=== PATIENT | male | born 1955 | race Hispanic/Latino ===

== ENCOUNTER 2020-03-05 11:06 | Inpatient (IN) | payer BC, OTHER ==
[2020-03-05 11:42] LABS: Absolute Lymphocytes (CBC) 3.6 K/uL (0.7-4.9); Basophils % 0.5 % (0-1.3); Hematocrit 41.1 % (39.6-49.0); Lymphocytes % 31.9 % (15.3-44.8); MPV 8.7 fL (7.6-11.3); RBC Red Blood Cell Count 4.69 M/uL (4.33-5.43)
--- OUTSIDE RECORDS SUMMARY | 2020-03-05 12:01 | XMS REPORT | Clinical Summary ---
:1955 Author Organization [facility] Address [address] [place] [address] Care Team Providers Name Role Phone Antonio Medellin MD Primary Care Provider Allergies No Known Active Allergies Medications Medication Sig Dispensed Refills Start End Date Status Date rosuvastatin Take 5 mg by 0 Acti ve (CRESTOR) 5 MG mouth every 0 tablet morning. BYSTOLIC 5 mg Take 5 mg by 0 Act gilson tablet mouth every 0 morning. POTASSIUM CITRATE Take by mouth 3 0 Active ORAL (three) times a day. nebivoloL 0 Active (BYSTOLIC) 5 MG tablet potassium citrate Take 1 tablet 270 tablet 3 0 Active (UROCIT-K) 10 mEq (10 mEq total) 0 21 (1,080 mg) CR by mouth 3 tablet (three) times a day with meals for 90 days. tamsulosin TK 1 C PO D 30 0 06/07/19 Disc ontinued (FLOMAX) 0.4 mg MIN PC 0 20 (The rapy capsule completed) alfuzosin Take 1 tablet 30 tablet 11 01/05/20 Discon tinued (UROXATRAL) 10 mg (10 mg total) by 0 20 (Therapy 24 hr tablet mouth daily. comp leted) potassium citrate Take 1 tablet 90 tablet 3 10/19/19 (UROCIT-K) 10 mEq (10 mEq total) 0 20 (1,080 mg) CR by mouth 3 tablet (three) times a day with meals for 30 days. ciprofloxacin HCl Take 1 tablet 14 tablet 0 11/12/19 (CIPRO) 250 MG (250 mg total) 0 20 tablet by mouth 2 (two) times a day for 7 days. docusate sodium Take 1 capsule 30 capsule 0 12/05/19 (COLACE) 100 MG (100 mg total) 0 20 capsule by mouth 2 (two) times a day as needed for constipation for up to 30 days. HYDROcodone-aceta Take 1 tablet by 20 tablet 0 11/09 minophen (NORCO) mouth every 4 0 20 5-325 mg per (four) hours as tabletIndications needed for : acute pain moderate pain for up to 5 days .acute pain. Max Daily Amount: 6 tablets levoFLOXacin Take 1 tablet 7 tablet 0 12/30/19 Exp ired (Levaquin) 250 MG (250 mg total) 0 20 tablet by mouth daily for 7 days. tamsulosin TK 1 C PO D 30 0 01/05/20 Disc ontinued (FLOMAX) 0.4 mg MIN PC 0 20 (The rapy capsule completed) nitrofurantoin, Take 1 capsule 30 capsule 0 01/05/20 Discontinued macrocrystal-mono (100 mg total) 0 20 (Reorder) hydrate, by mouth nightly (MACROBID) 100 MG for 30 days. capsule nitrofurantoin, Take 1 capsule 30 capsule 0 02/04/20 macrocrystal-mono (100 mg total) 0 20 hydrate, by mouth nightly (MACROBID) 100 MG for 30 days. capsule potassium citrate TK 1 T PO TID 0 02/13/20 Discontinued (UROCIT-K) 10 mEq WITH MEALS 0 20 ( Reorder) (1,080 mg) CR tablet Active Problems Problem Noted Date S/P TURP 11/16/2019 Personal history of kidney stones 09/06/2019 BPH without obstruction/lower urinary tract symptoms 0 06/07/2019 Resolved Problems Problem Noted Date Resolved Date Urge incontinence of urine 01/05/2020 02/07/2020 Overactive bladder 01/05/2020 02/07/2020 At risk for retention of urine 09/06/2019 0 Slow urinary stream 06/07/2019 02/07/2020 Encounters Date Type Specialty Care Team Description 02/13/2020 Telephone Urology Jace Bryant MD 02/07/2020 Office Visit Urology Manny, BPH without obs truction/lower urinary tract symptoms (Primary Dx); MD Jace S/P TURP; Personal histor y of kidney stones 02/07/2020 Travel 01/05/2020 Office Visit Urology Manny, BPH without obs truction/lower urinary tract symptoms (Primary Dx); MD Jace Urge incontinen ce of urine; Overactive blad chong 01/05/2020 Travel 12/23/2019 Telephone Urology Jace Bryant MD 11/16/2019 Office Visit Urology Manny, BPH without obs truction/lower urinary tract symptoms (Primary Dx); MD Jace S/P TURP; Personal histor y of kidney stones 11/16/2019 Travel 11/09/2019 Orders Only Urology Steff Wilson, At risk for retention of urine (Primary Dx); MA Urinary tract i nfection with hematuria, site unspecified 11/07/2019 Telephone Urology Sam Martinez MD 11/04/2019 Surgery General Surgery Manny, CYSTO, TURP MD Jace 11/04/2019 Anesthesia Event General Surgery Dmitry Su MD Alper, Samantha J 11/04/2019 - Hospital Encounter General Surgery Manny, BPH wi 11/05/2019 MD Jace obstruction/low er urinary tract symptoms (Prima ry Dx) 11/04/2019 Travel 10/31/2019 Pre-Admit Testing Pre-Admission Manny Preoperat gilson testing (Primary Dx); Appointment Testing MD Jace BPH with obstru ction/lower urinary tract symptoms 10/31/2019 Travel 10/26/2019 Travel 10/21/2019 Telephone Urology Steff Wilson MA 09/29/2019 Telemedicine Urology Manny BPH with obstru ction/lower urinary tract symptoms (Primary Dx); MD Jace Slow urinary st ream; At risk for ret ention of urine; Personal histor y of kidney stones 09/23/2019 Orders Only Urology Steff Wilson MA 09/23/2019 Telephone Urology Jace Bryant MD 09/19/2019 Orders Only Urology Jace Bryant MD 09/16/2019 Hospital Encounter Radiology Manny, Right arpan ticular MD Jace pain 09/16/2019 Travel 09/15/2019 Travel 09/15/2019 Telephone Urology Mehnaz Narayanan MA 09/15/2019 Telephone Urology Jace Bryant MD 09/15/2019 Telephone Urology Jace Bryant MD 09/15/2019 Orders Only Urology Manny, Right testicula r MD Jace pain (Primary D x) 09/06/2019 Office Visit Urology Manny BPH with obstru ction/lower urinary tract symptoms (Primary Dx); MD Jace Slow urinary st ream; Personal histor y of kidney stones; At risk for ret ention of urine 09/06/2019 Orders Only Urology Jace Bryant MD 09/06/2019 Travel 08/04/2019 Travel 06/07/2019 Hospital Encounter Radiology Manny, BPH with MD Jace obstruction/low er urinary tract symptoms 06/07/2019 Office Visit Urology Manny BPH with obstru ction/lower urinary tract symptoms (Primary Dx); MD Jace Slow urinary st ream 06/07/2019 Travel after 03/05/2019 Surgical History Surgery Date Site/Laterality Comments KNEE SURGERY Right KNEE ARTHROSCOPY Right CYSTO, SALINE TURP (BIPOLAR) 11/04/2019 Urethra/N/A Pro cedure: CYSTO, TURP; Surgeon: Jace Judd MD; Location: [facility] OR; Service: Urology ; Laterality: N/A; Medical History Medical History Date Comments Abdominal aneurysm (HCC) " diagnosed 10 yrs ago, no symptoms" Hypertension Hypercholesteremia Family History Medical History Relation Name Comments Diabetes Mother Relation Name Status Comments Father Mother Social History Tobacco Use Types Packs/Day Years Used Date Never Smoker Smokeless Tobacco: Never Used Alcohol Use Drinks/Week oz/Week Comments Yes social Sex Assigned at Date Recorded Male 11/16/2019 7:14 AM CDT COVID-19 Exposure Response Date Recorded In the last month, have you been in contact with No / Unsure 02/07/2020 1:38 PM CALL CENTER TRAINER someone who was confirmed or suspected to have Coronavirus / COVID-19? Last Filed Vital Signs Vital Sign Reading Time Taken Comments Blood Pressure 123/61 11/05/2019 10:47 AM CDT Pulse 49 11/05/2019 10:47 AM CDT Temperature 37.1 C (98.7 F) 11/05/2019 10:47 AM CDT Respiratory Rate 17 11/05/2019 10:47 AM CDT Oxygen Saturation 97% 11/05/2019 10:47 AM CDT Inhaled Oxygen Concentration - - Weight 94.8 kg (209 lb 1.6 oz) 11/04/2019 6:45 AM CDT Height 170.2 cm (5' 7") 11/04/2019 6:45 AM CDT Body Mass Index 32.75 11/04/2019 6:45 AM CDT Plan of Treatment Date Type Specialty Care Team Description 02/06/2021 Office Visit Urology Nanci Bryant MD [address] [facility] [address] [place], [place] [address] [phone] Health Maintenance Due Date Last Done Comments COLONOSCOPY SCREENING 2003 SHINGLES VACCINES (#1) 2003 65+ PNEUMOCOCCAL VACCINE (1 of 1 - PPSV23) 2018 INFLUENZA VACCINE 10/29/2019 Procedures Procedure Name Priority Date/Time Associated Diagnosis Comme nts POC URINALYSIS Routine 01/05/2020 3:59 BPH without Results f or this DIPSTICK PM CDT obstruction/lower procedure are in urinary tract the results symptoms section. Urge incontinence of urine Overactive bladder URINALYSIS, COMPLETE, Routine 01/05/2020 1:34 BPH without Re sults for this WITH REFLEX TO PM CDT obstruction/lower procedur e are in CULTURE urinary tract the results symptoms section. URINE CULTURE Routine 01/05/2020 1:34 Results fo r this PM CDT procedure are i n the results section. URINALYSIS, COMPLETE, Routine 11/09/2019 10:08 At risk for Re sults for this WITH REFLEX TO AM CDT retention of uri ne procedure are in CULTURE Urinary tract the results infection with section. hematuria, site unspecified URINE CULTURE Routine 11/09/2019 10:08 Results fo r this AM CDT procedure are i n the results section. SURGICAL PATHOLOGY Routine 11/04/2019 8:29 Resul ts for this REQUEST AM CDT procedure are i n the results section. MN AN ELECTIVE Routine 11/04/2019 8:20 Results f or this SUPRAGLOTTIC AIRWAY AM CDT procedur e are in the results section. CYSTO, SALINE TURP 11/04/2019 8:07 BPH with (BIPOLAR) AM CDT obstruction/lower urinary tract symptoms MANUAL DIFFERENTIAL Routine 10/31/2019 2:51 Resu lts for this PM CDT procedure are i n the results section. ESTIMATED GFR Routine 10/31/2019 2:51 Results fo r this PM CDT procedure are i n the results section. CBC WITH PLATELET AND Routine 10/31/2019 2:51 BPH with Re sults for this DIFFERENTIAL PM CDT obstruction/lower procedure are in urinary tract the results symptoms section. BASIC METABOLIC PANEL Routine 10/31/2019 2:51 BPH with Re sults for this PM CDT obstruction/lower procedure are in urinary tract the results symptoms section. URINALYSIS, AUTOMATED Routine 10/31/2019 2:51 BPH with Re sults for this WITH MICROSCOPY PM CDT obstruction/lower procedu re are in urinary tract the results symptoms section. TYPE AND SCREEN Routine 10/31/2019 2:51 Preoperative testing Results for this PM CDT procedure are i n the results section. HEMOGLOBIN A1C Routine 10/31/2019 2:51 Preoperative testing R esults for this PM CDT procedure are i n the results section. ECG PRE/POST OP Routine 10/31/2019 2:48 BPH with Results for this PM CDT obstruction/lower procedure are in urinary tract the results symptoms section. COVID-19 QUALITATIVE Routine 10/31/2019 2:46 BPH with Res ults for this PCR PM CDT obstruction/lower procedure are in urinary tract the results symptoms section. US SCROTAL Routine 09/16/2019 8:25 Right testicular Results for this AM CDT pain procedure are i n the results section. PROSTATE SPECIFIC Routine 06/07/2019 3:02 BPH with Result s for this ANTIGEN PM CDT obstruction/lower procedure are in urinary tract the results symptoms section. US RENAL Routine 06/07/2019 12:19 BPH with Results for this PM CDT obstruction/lower procedure are in urinary tract the results symptoms section. URINALYSIS, COMPLETE, Routine 06/07/2019 10:21 BPH with Re sults for this WITH REFLEX TO AM CDT obstruction/lower procedur e are in CULTURE urinary tract the results symptoms section. URINE CULTURE Routine 06/07/2019 10:21 Results fo r this AM CDT procedure are i n the results section. after 03/05/2019 Results POC urinalysis dipstick (01/05/2020 3:59 PM CDT) Pathologist Sig nature Color urine, POC Yellow Clarity urine, POC Clear Glucose urine, POC Negative Negative Bilirubin urine, POC Negative Negative Ketones urine, POC Trace (A) Negative Specific gravity urine, 1.010 1.005 - 1.030 POC Blood urine, POC Trace (A) Negative pH urine, POC 5.0 5.0, 5.5, 6.0, 6.5, 7.0, 7.5, 8.0, 8.5 Protein urine, POC Negative Negative Urobilinogen urine, POC <2.0 <2.0 Nitrite urine, POC Negative Negative Leukocyte esterase Negative Negative urine, POC Specimen Urine URINALYSIS, COMPLETE, WITH REFLEX TO CULTURE (01/05/2020 1:34 PM CDT)Only the most recent of3 resultswithin the time period is included. Color, UA YELLOW YELLOW [facility] [place] Appearance CLEAR CLEAR [facility] [place] Specific gravity, 1.024 1.001 - 1.035 [facility] urine [place] pH, urine 7.0 5.0 - 8.0 [facility] [place] Glucose, urine 1+ (A) NEGATIVE [facility] [place] Bilirubin, UA NEGATIVE NEGATIVE [facility] [place] Ketones, UA TRACE (A) NEGATIVE [facility] [place] Occult blood, urine TRACE (A) NEGATIVE [facility] [place] Protein, UA NEGATIVE NEGATIVE [facility] [place] Nitrite, UA NEGATIVE NEGATIVE [facility] [place] Leukocyte esterase, TRACE (A) NEGATIVE [facility] UA [place] WBC, UA 6-10 (A) < OR = 5 /HPF [facility] [place] RBC, UA 3-10 (A) < OR = 2 /HPF [facility] [place] Squamous epithelial 0-5 < OR = 5 /HPF [facility] cells, UA [place] Bacteria, UA FEW (A) NONE SEEN /HPF [facility] [place] Hyaline casts, UA NONE SEEN NONE SEEN /LPF [facility] [place] Specimen Resulting Agency Comment Performing Organization Information: Site ID: [id number] Name: [facility] Address: [address] [place] [phone] Director: Wesley Leal Performing Organization Address City/State/ZIP Code Phon e Number [employer] [place] [address] [place] [phone] Urine culture (01/05/2020 1:34 PM CDT)Only the most recent of3 resultswithin the time period is included. Pathologist Sig nature Urine culture [facility] Comment: HAN CULTURE, URINE, ROUTINE Micro Number: [id number] Test Status: Final Specimen Source: URINE Specimen Quality: Adequate Result: No Growth Specimen Resulting Agency Comment Performing Organization Information: Site ID: [id number] Name: [facility] Address: [address] [place] [phone] Director: Wesley Leal Performing Organization Address City/State/ZIP [facility] Phon e Number [facility] [address] Surgical pathology request (11/04/2019 8:29 AM CDT) [facility] DEPARTMENT OF PATHOLOGY AND GENOMIC MEDICINE Surgical pathology See link below [facility] DEPARTMENT OF report for PDF Lab PATHOLOGY AND Report GENOMIC MEDICINE Result status This is Final [facility] DEPARTMENT OF Report for PATHOLOGY AND [id number] GENOMIC MEDICINE Specimen Performing Organization Address City/State/[facility] Phon e Number [facility] DEPARTMENT OF PATHOLOGY AND [address] [place] [address] GENOMIC MEDICINE Airway (11/04/2019 8:20 AM CDT) Narrative Performed At [facility] 11/04/2019 8:20 AM Airway Date/Time: 11/04/2019 8:20 AM Performed by: [facility] [place] Authorized by: Dmitry Su MD Location: OR Urgency: Elective Difficult Airway: No Anesthesiologist: Dmitry Su MD Resident/WEIGHT CONTROL LECTURER/AA: [facility] [place] Performed by: resident/WEIGHT CONTROL LECTURER/AA Preoxygenated with 100% O2: Yes C-spine Precautions Maintained Throughou t: Yes Mask Ventilation: Not attempted Final Airway Type: Supraglottic airway Final LMA: Unique LMA Size: 5 Number of Attempts at Approach: 1 Estimated GFR (10/31/2019 2:51 PM CDT) Estimated GFR >=90 mL/min/1.73 [facility] Comment: m2 [facility] Catergory Units Interpretation HOS PITAL G1 >=90 Normal or high G2 60-89 Mildly decreased G3a 45-59 Mildly to moderately decreas ed G3b 30-44 Moderately to severely decre ased G4 15-29 Severely decreased G5 <15 Kidney failure The eGFR was calculated using the Chronic Kidney Disea se Epidemiology Collaboration (CKD-EPI) equation. Interpretation is based on recommendations of the National Kidney Foundation-Kidney Disease Outcomes Jhonatan lity Initiative (NKF-KDOQI) published in 2014. Specimen Performing Organization Address [facility] Phon e Number [facility] DEPARTMENT OF PATHOLOGY AND [address] [place] [address] MEDICINE [facility] [id number] [place] [address] Manual differential (10/31/2019 2:51 PM CDT) Manual differential PERFORMED [facility] Neutrophils 23.0 (L) 39.0 - 69.0 % [facility] Lymphocytes 74.0 (H) 25.0 - 45.0 % [facility] Monocytes 3.0 0.0 - 10.0 % [facility] Eosinophils 0.0 0.0 - 5.0 % [facility] Basophils 0.0 0.0 - 1.0 % [facility] Metamyelocytes 0 % [facility] Promyelocytes 0 % [facility] Platelet slide review Jay adequate [facility] Specimen Performing Organization Address [facility] Phon e Number [facility] DEPARTMENT OF PATHOLOGY AND [address] [place] [address] [place], [place] [phone] [place] [id number] [place] [address] Urinalysis, automated with microscopy (10/31/2019 2:51 PM CDT) Pathologist Sig nature Color, UA Yellow [facility] Appearance, UA Cloudy [facility] Specific gravity, UA 1.018 1.001 - 1.035 [facility] pH, UA 8.0 5.0 - 8.5 [facility] Protein, UA Negative Negative [facility] Glucose, UA Negative Negative [facility] Ketones, UA Negative Negative [facility] Bilirubin, UA Negative Negative [facility] Blood, UA Negative Negative [facility] Nitrite, UA Negative Negative [facility] Urobilinogen, UA 2.0 (A) <2.0 [facility] Leukocyte esterase, Negative Negative [facility] Epithelial cells, UA Few Few /HPF [facility] WBC, UA 0-5 0 - 1 /HPF [facility] RBC, UA 0-5 0 - 5 /HPF [facility] Bacteria, UA None seen None seen [facility] Amorphous crystals Few [facility] Yeast, UA None seen [facility] Yeast with None seen [facility] pseudohyphae, UA [facility] Specimen Urine Performing Organization Address City/State/ZIP Code Phon e Number [facility] DEPARTMENT OF PATHOLOGY AND [address] [place] [address] GENOMIC MEDICINE [facility] [address] [place], [place] [address] [facility] CBC with platelet and differential (10/31/2019 2:51 PM CDT) Pathologist Sig nature WBC 15.23 (H) 4.50 - 11.00 k/uL [facility] RBC 4.67 4.40 - 6.00 m/uL [facility] HGB 13.9 (L) 14.0 - 18.0 g/dL [facility] HCT 42.6 41.0 - 51.0 % [facility] MCV 91.2 82.0 - 100.0 fL [facility] MCH 29.8 27.0 - 34.0 pg [facility] MCHC 32.6 31.0 - 37.0 g/dL [facility] RDW - SD 47.1 37.0 - 55.0 fL [facility] MPV 10.3 8.8 - 13.2 fL [facility] Platelet count 221 150 - 400 k/uL [facility] Nucleated RBC 0.00 /100 WBC [facility] Neutrophils 23.0 (L) 39.0 - 69.0 % [facility] Lymphocytes 74.0 (H) 25.0 - 45.0 % [facility] Monocytes 3.0 0.0 - 10.0 % [facility] Eosinophils 0.0 0.0 - 5.0 % [facility] Basophils 0.0 0.0 - 1.0 % [facility] Specimen Blood Performing Organization Address City/[facility] Phon e Number [facility] DEPARTMENT OF PATHOLOGY AND [address] [place] [address] [place] [address] [facility] [id number] [place] [address] [place] [address] HOSPITAL Type and screen (10/31/2019 2:51 PM CDT) Pathologist Sig nature ABO grouping O [facility] Rh type POS [facility] Antibody screen (gel) NEG [facility] Specimen Blood Performing Organization Address City/[facility] Phon e Number [facility] DEPARTMENT OF PATHOLOGY AND [address] [place] [address] [place] [address] Hemoglobin A1c (10/31/2019 2:51 PM CDT) Hemoglobin A1C 5.2 4.0 - 5.6 % [facility] Comment: [facility] HbA1c cutoffs for diagnosing diabetes: [facility]ITAL 4.0% - 5.6% = normal 5.7% - 6.4% = increased risk for diabetes (prediabetes )9 >=6.5% = diabetes9 Goals for glycemic control (ADA 2016) < 7.0% Target for non adults with diabetes. More or less stringent targets may be appropriate for individual patients. <7.5% Target for Children and adolescents with type 1 diabetes. Specimen Blood Performing Organization Address City/[facility] Phon e Number [facility] DEPARTMENT OF PATHOLOGY AND [address] [place] [address] [place] [address] [facility] [id number] [place] [address] Basic metabolic panel (10/31/2019 2:51 PM CDT) Pathologist Sig nature Sodium 141 135 - 148 mEq/L [facility] Potassium 4.6 3.5 - 5.0 mEq/L [facility] Chloride 105 98 - 112 mEq/L [facility] CO2 28 24 - 31 mEq/L [facility] Anion gap 8@ANIO 7 - 15 mEq/L [facility] BUN 20 8 - 23 mg/dL [facility] Creatinine 0.70 0.70 - 1.20 mg/dL [facility] Glucose 139 (H) 65 - 99 mg/dL [facility] Calcium 9.5 8.8 - 10.2 mg/dL [facility] Specimen Blood Performing Organization Address [facility]/ZIP [facility] Phon e Number [facility] DEPARTMENT OF PATHOLOGY AND [address] [place] [address] GENOMIC MEDICINE [facility] [address] [place], [place] [address] [facility] ECG Pre/Post Op (10/31/2019 2:48 PM CDT) Pathologist Sig nature Ventricular rate 53 [facility] Atrial rate 53 [facility] MN interval 156 [facility] QRSD interval 88 [facility] QT interval 424 [facility] QTC interval 397 [facility] P axis 1 27 [facility] QRS axis 1 -12 [facility] T wave axis 51 [facility] EKG impression Sinus [facility] bradycardia-Otherwise normal ECG-No previous ECGs available-Electronicall y Signed By Elvis Schafer MD ([id number]) on 11/01/2019 7:14:06 AM Specimen Narrative Performed At This result has an attachment that is no t available. Performing Organization Address [facility] Phon e Number [facility] [address] [place] [address] COVID-19 qualitative PCR (10/31/2019 2:46 PM CDT) Interpretation Negative results do not prec lude 2019-nCoV infection and should not be used as the sole basis for treatment or other patient management decisions. Negative results must be combined with clinical observations, patient history, and epidemiological HAN information. [facility] COVID-19 qualitative Not-Detected Not-Detecte [place] PCR result d [facility] COVID-19 qualitative See link below for [place] PCR PDF Lab [facility] ReportComment: Case [facility]OSP[facility] Number: [id number] Specimen Nasopharyngeal swab Performing Organization Address City/[facility] Phon e Number [facility] DEPARTMENT OF PATHOLOGY AND [address] [place], [place] [address] GENOMIC MEDICINE [facility] [address] [place] [address] [facility] US Scrotal (09/16/2019 8:25 AM CDT) Specimen Narrative Performed At EXAMINATION: US SCROTAL [facility] CLINICAL HISTORY: N50.811 Right testic ular pain, right testiscle pain COMPARISON: None. TECHNIQUE: Sonographic evaluation of the scrotum. Re al-time B mode grayscale, Doppler spectral analysis and Doppler color flow imaging was used to assess testicular vasculature. FINDINGS: RIGHT HEMISCROTUM: The right testicle measures 4.7 x 2 .3 x 3.3 cm. Testicular echogenicity is normal. No intratesticular masses are identified. There is normal color and duplex Doppler f low. Multiple right epididymal head cysts, the largest measuring up to 2.3 cm. The right epididymis is otherwise unremarka ble. Moderately sized hydrocele. Varicocele. LEFT HEMISCROTUM: The left testicle measures 4.6 x 2.0 x 3.3 cm. Testicular echogenicity is normal. No intratesticular masses are identified. There is normal color and duplex Doppler f low. The left epididymis is otherwise unremarkable. Th ere is no evidence of hydrocele or varicocele. IMPRESSION: 1.Right-sided varicocele. 2.Moderate right hydrocele. 3.Right epididymal head cysts, measuring up to 2.3 cm, benign. [facility]-[id number] Dictated and approved by radiology resid ent/fellow: Gal Cook M.D. I, Stuart Knutson MD, personally reviewed the images and resident's/fellow's findings and agree with the final report. Procedure Note Interface, Radiology Results Incoming - 09/16/2019 12:46 PM CDT EXAMINATION: US SCROTAL CLINICAL HISTORY: N50.811 Right testicu lar pain, right testiscle pain COMPARISON: None. TECHNIQUE: Sonographic evaluation of th e scrotum. Real-time B mode grayscale, Doppler spectral analysis and Doppler color flow imaging was used to assess testicular vasculature. FINDINGS: RIGHT HEMISCROTUM: The right testicle me asures 4.7 x 2.3 x 3.3 cm. Testicular echogenicity is normal. No intratesticular masses are identified. There is normal color and duplex Doppler flow. Multiple right epididymal head cysts, the largest measu ring up to 2.3 cm. The right epididymis is other glaser unremarkable. Moderately sized hydrocele. Varicocele. LEFT HEMISCROTUM: The left testicle lokesh ures 4.6 x 2.0 x 3.3 cm. Testicular echogenicity is normal. No intratesticular masses are identified. There is normal color and duplex Doppler flow. The left epididymis is otherwise unremarkable. There is no evidence of hydrocele or varicocele. IMPRESSION: 1.Right-sided varicocele. 2.Moderate right hydrocele. 3.Right epididymal head cysts, measuring up to 2.3 cm, benign. [id number] Dictated and approved by radiology resid ent/fellow: Gal Cook M.D. I, Stuart Knutson MD, personally reviewed the images and resident's/fellow's findings and agree with the final report. Performing Organization Address City/State/ZIP Code Phon e Number [facility] [address] [place] [address] Prostate specific antigen (06/07/2019 3:02 PM CDT) PSA 2.1 < OR = 4.0 [facility] Comment: ng/mL [place] The total PSA value from this assay system is standardized against the WHO standard. The test result will be approximately 20% lower when compared to the equimolar-standardized total PSA (Tien Luis). Comparison of serial PSA results should be interpreted with this fact in mind. This test was performed using the Siemens chemiluminescent method. Values obtained from different assay methods cannot be used interchangeably. PSA levels, regardless of value, should not be interpreted as absolute evidence of the presence or absence of disease. Specimen Blood Resulting Agency Comment Performing Organization Information: Site ID: [id number] Address: [address] [place] [id number] Director: Wesley Leal Performing Organization Address City/State/ZIP [facility] [place] Phon e Number [employer] [address] [id number] US Renal (06/07/2019 12:19 PM CDT) Specimen Narrative Performed At EXAMINATION: US RENAL TOMMY CLINICAL HISTORY: N40.1 Benign prostatic hyperplasia with lower urinary tract symptoms, N13.8 Other obst ructive and reflux uropathy, uti COMPARISON: None. FINDINGS: The kidneys are normal in size and echogenicity. There is no evidence of renal mass or hydronephrosis. The right kidney measures 11.1 cm X 5.8 cm X 4.4 cm. Renal cortex 1.6 cm The left kidney measures 12.0 cm X 6.2 cm X 5.3 cm. 1.8 cm. 6 mm nonobstructing parenchymal calculus uppe r pole left kidney The urinary bladder is nondistended. 9 mm linear calci fication at the bladder floor possibly related to prostate. Prostate 4 .1 cm x 3.5 cm x 3.1 cm. IMPRESSION: Normal-appearing kidneys Moderate size prostate with suspected co arse benign calcification [id number] Procedure Note Hm Interface, Radiology Results Incoming - 06/07/2019 12:48 PM CDT EXAMINATION: US RENAL CLINICAL HISTORY: N40.1 Benign prostati c hyperplasia with lower urinary tract symptoms, N13.8 Other obstructive and reflux uropathy, uti COMPARISON: None. FINDINGS: The kidneys are normal in size and echog enicity. There is no evidence of renal mass or hydronephrosis. The right kidney measures 11.1 cm X 5 .8 cm X 4.4 cm. Renal cortex 1.6 cm The left kidney measures 12.0 cm X 6. 2 cm X 5.3 cm. 1.8 cm. 6 mm nonobstructing parenchymal calculus upper pole left kidney The urinary bladder is nondistended. 9 m m linear calcification at the bladder floor possibly related to prostate. Prostate 4.1 cm x 3.5 cm x 3.1 cm. 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
--- OUTSIDE RECORDS SUMMARY | 2020-03-05 12:02 | XMS REPORT | Continuity of Care Document ---
:1955 Author Organization [facility] t Address [address] [place] [place] [address] Care Team Providers Name Role Phone Antonio Medellin MD Primary Care Physician Manny RODRIGUES Attending Clinician Steve MACIAS Attending Clinician Unavailable Juan RODRIGUES, R. Attending Clinician Sharlene RODRIGUES, W. Attending Clinician Bryce Coleman Attending Clinician Unavailable Oracio MACIAS Attending Clinician Unavailable MANNY Admitting Clinician Unavailable Payers Payer Name Policy Type Policy Effective Date Expiration Date Sour ce Number BCBSANTHEM ANGELA [id number] 2018 [place] SYTTElnsddwkn35E 00:00:00 Methodis t 2018-Presen tPPO Problems Condition Condition Condition Status Onset Resolution Last Treating Co mments Source Name Details Category Date Date Treatment Clinician Date S/P TURP S/P TURP Disease Active [place] 11-15 Methodi 00:00: st 00 Personal Personal Disease Active 2019-0 [place] history of history of 09-05 Ok thodi kidney kidney 00:00: st stones stones 00 BPH BPH Disease Active [place] without without 3-10 Methodi obstructio obstructio 00:00: st n/lower n/lower 00 urinary urinary tract tract symptoms symptoms Urge Urge Disease Resolve 2019-032020-02-07 2020-02-07 [place] incontinen incontinen d 0-08 00:00:00 14:12:13 Methodi ce of ce of 00:00: st urine urine 00 Overactive Overactive Disease Resolve 2019-032020-02-07 2020-02-07 [place] bladder bladder d 0-08 00:00:00 14:12:07 Meth anna marie 00:00: st 00 History of Past Illness Condition Condition Condition Status Onset Resolution Last Treating Co mments Source Name Details Category Date Date Treatment Clinician Date Slow Slow Disease Resolve 2020-02-07 2020-02-07 [facility] urinary urinary d 3-10 00:00:00 14:12:10 Meth anna marie stream stream 00:00: st 00 At risk At risk Disease Resolve 2019-11-16 2019-11-16 [place] for for d 6-09 00:00:00 11:03:46 Method i retention retention 00:00: st of urine of urine 00 Allergies, Adverse Reactions, Alerts This patient has no known allergies or adverse reactions. Family History Family Member Diagnosis Comments Start Date Stop Date Source Natural mother Diabetes [facility] thodist Social History Social Habit Start Date Stop Date Quantity Comments Source Sex Assigned At [facility] ethodist Exposure to Not sure [facility] Metho dist SARS-CoV-2 (event) Tobacco use and 2020-02-07 2020-02-07 Never used [facility] ethodist exposure 00:00:00 00:00:00 Alcohol intake 2020-02-07 2020-02-07 Current drinker Martinezt on [facility] 00:00:00 00:00:00 of alcohol (finding) Alcohol Comment 2019-10-26 2019-10-26 social [facility] ethodist 00:00:00 00:00:00 Smoking Status Start Date Stop Date Source Never smoker [facility] Methodis t Medications Ordered Filled Start Stop Current Ordering Indication Dosage Frequency Signature Comments Components Source Medication Medication Date Date Medication? Clinician (SIG) Name Name nebivoloL 2019-03 Yes [place] (BYSTOLIC) 1-16 Methodi 5 MG tablet 15:10: st 23 potassium 2019-03- Yes 10meq Q.[id number] Take 1 [facility] citrate 1-16 02-14 [id number] tablet (10 Methodi (UROCIT-K) 00:00: 23:59 3D mEq total) st 10 mEq 00 :00 by mouth 3 (1,080 mg) (three) CR tablet times a day with meals for 90 days. POTASSIUM 2019-03 Yes Q.[id number] Take by [facility] CITRATE 0-08 [id number] mouth 3 Met hodi ORAL 13:23: 3D (three) st 23 times a day. nitrofurant 2019-03- No 100mg QD Take 1 Ho erika oin, 002-03 capsule Methodi macrocrysta 00:00: 23:59 ([address] l-monohydra 00 :00 total) by te, mouth (MACROBID) nightly 100 MG for 30 capsule days. nitrofurant 2019-03- No 100mg QD Take 1 Ho erika oin, 001-04 capsule Methodi macrocrysta 00:00: 00:00 ([address] l-monohydra 00 :00 total) by te, mouth (MACROBID) nightly 100 MG for 30 capsule days. tamsulosin 2019- No TK 1 C PO [place] (FLOMAX) 12-27 10-08 D 30 MIN Method i 0.4 mg 00:00: 00:[address] capsule 00 :00 levoFLOXaci 2019- No 250mg QD Take 1 Alexis james n 12-22 tablet Methodi (Levaquin) 00:00: 23:59 ([address] 250 MG 00 :00 total) by tablet mouth daily for 7 days. potassium 2019- No TK 1 T PO Alexis james citrate 11-22 TID WITH Methodi (UROCIT-K) 00:00: 00:[address] 10 mEq 00 :00 (1,080 mg) CR tablet docusate 2019- No 100mg Q.5D Take 1 [place] sodium 11-04 capsule Methodi (COLACE) 00:00: 23:59 ([address] 100 MG 00 :00 total) by capsule mouth 2 (two) times a day as needed for constipati on for up to 30 days. ciprofloxac 2019- 2020- No 250mg Q.5D Take 1 Alexis james in HCl 11-04 tablet Methodi (CIPRO) 250 00:00: 23:59 ([address] MG tablet 00 :00 total) by mouth 2 (two) times a day for 7 days. HYDROcodone 2020- No acute pain 1{tbl} Q4H Take 1 Silva -acetaminop 8-08 08-13 tablet by Me thodi hen (NORCO) 00:00: 23:[address] 5-325 mg 00 :00 every 4 per tablet (four) hours as needed for moderate pain for up to 5 days .acute pain. Max Daily Amount: 6 tablets potassium 2019- 2020- No 10meq Q.[id number] Take 1 Silva citrate 6 07- [id number] tablet (10 Methodi (UROCIT-K) 00:00: 23:59 3D mEq total) st 10 mEq 00 :00 by mouth 3 (1,080 mg) (three) CR tablet times a day with meals for 30 days. alfuzosin 2019- 2020- No 10mg QD Take 1 [place] (UROXATRAL) 3-10 -08 tablet (10 M ethodi 10 mg 24 hr 00:00: 00:00 mg total) st tablet 00 :00 by mouth daily. rosuvastati 2020-0 Yes 5mg QD Take 5 mg [place] n (CRESTOR) 2-10 by mouth Meth anna marie 5 MG tablet 00:00: every st 00 morning. BYSTOLIC 5 2020-0 Yes 5mg QD Take 5 mg [place] mg tablet 2-10 by mouth Method i 00:00: every st 00 morning. tamsulosin 2020- No TK 1 C PO [place] (FLOMAX) 1-16 03-10 D 30 MIN Method i 0.4 mg 00:00: 00:[address] capsule 00 :00 Vital Signs Vital Name Observation Time Observation Value Comments Source Systolic blood 2019-11-05 10:47:32 123 mm[Hg] Martinezto n [facility] pressure Diastolic blood 2019-11-05 10:47:32 61 mm[Hg] [place] [facility] pressure Heart rate 2019-11-05 10:47:32 49 /min Ricardo Randle Body temperature 2019-11-05 10:47:32 37.06 Fern [place] Respiratory rate 2019-11-05 10:47:32 17 /min [place] Oxygen saturation in 2019-11-05 10:47:32 97 /min Ricardo Randle Arterial blood by Pulse oximetry Body height 2019-11-04 06:45:00 170.2 cm Ricardo Randle Body weight 2019-11-04 06:45:00 94.847 kg Ricardo Randle BMI 2019-11-04 06:45:00 32.75 kg/m2 Ricardo Randle Procedures Procedure Date / Time Performed Performing Clinician [facility] e POC URINALYSIS DIPSTICK 2020-01-05 15:59:00 Jace Bryant URINE CULTURE 2020-01-05 13:34:00 Jace Bryant ethodist URINALYSIS, COMPLETE, 2020-01-05 13:34:00 Jace Bryant WITH REFLEX TO CULTURE URINE CULTURE 2019-11-09 10:08:00 Jace Bryant ethodist URINALYSIS, COMPLETE, 2019-11-09 10:08:00 Jace Bryant WITH REFLEX TO CULTURE SURGICAL PATHOLOGY 2019-11-04 08:29:00 Jace Bryant REQUEST TN AN ELECTIVE 2019-11-04 08:20:03 Le Coleman thodist SUPRAGLOTTIC AIRWAY CYSTO, SALINE TURP 2019-11-04 08:07:00 Jace Bryant (BIPOLAR) HEMOGLOBIN A1C 2019-10-31 14:51:00 Jace Bryant ethodist TYPE AND SCREEN 2019-10-31 14:51:00 Jace Bryant ethodist URINALYSIS, AUTOMATED 2019-10-31 14:51:00 Jace Bryant WITH MICROSCOPY BASIC METABOLIC PANEL 2019-10-31 14:51:00 Jace Bryant CBC WITH PLATELET AND 2019-10-31 14:51:00 Jace Bryant DIFFERENTIAL ESTIMATED GFR 2019-10-31 14:51:00 Jace Bryant ethodist MANUAL DIFFERENTIAL 2019-10-31 14:51:00 Jace Bryant ECG PRE/POST OP 2019-10-31 14:48:25 Jace Bryant ethodist COVID-19 QUALITATIVE PCR 2019-10-31 14:46:00 Jace Bryant US SCROTAL 2019-09-16 08:25:00 Jace Bryant ethodist PROSTATE SPECIFIC ANTIGEN 2019-06-07 15:02:00 Jace Bryant US RENAL 2019-06-07 12:19:09 Jace Bryant ethodist URINE CULTURE 2019-06-07 10:21:00 Jace Bryant ethodi URINALYSIS, COMPLETE, 2019-06-07 10:21:00 Jace Bryant WITH REFLEX TO CULTURE Plan of Care Planned Activity Planned Date Details Comments Source Future Scheduled 2019-10-29 INFLUENZA VACCINE [place] [facility] 00:00:00 [code = INFLUENZA VACCINE] Future Scheduled 2018 65+ PNEUMOCOCCAL [facility] 00:00:00 VACCINE (1 of 1 - PPSV23) [code = 65+ PNEUMOCOCCAL VACCINE (1 of 1 - PPSV23)] Future Scheduled 2003 [facility]ONOSCOPY SCREENING [facility] Test 00:00:00 [code = COLONOSCOPY SCREENING] Future Scheduled 2003 [facility] 00:00:00 [code = SHINGLES VACCINES (#1)] Encounters Start End Encounter Admission Attending Care Care Encounter Source Date/Time Date/Time Type Type Clinicians Facility Department ID 2020-02-07 2020-02-07 [facility] [id number] [place] 00:00:00 00:00:00 JACE [address] 2020-01-05 2020-01-05 [facility] [id number] [place] 00:00:00 00:00:00 JACE [address] 2019-11-16 2019-11-16 [facility] [id number] [place] 00:00:00 00:00:00 JACE [address] 2019-11-04 2019-11-05 [place] [id number] [place] 00:00:00 00:00:00 JACE [address] 2019-10-31 2019-10-31 [facility] [id number] [place] 00:00:00 00:00:00 JACE [address] 2019-09-29 2019-09-29 [facility] [id number] [place] 00:00:00 00:00:00 JACE [address] 2019-09-16 2019-09-16 [facility] [id number] [place] 00:00:00 00:00:00 JACE [address] 2019-09-06 2019-09-06 Outpatient MANNY, [facility] [id number] [place] 00:00:00 00:00:00 JACE [address] 2019-06-07 2019-06-07 Outpatient MANNY, [facility] 2099 [id number] [place] 00:00:00 00:00:00 JACE [address] 2019-06-07 2019-06-07 Outpatient MANNY, [facility] 2099 [id number] [place] 00:00:00 00:00:00 JACE [address] Results Test Description Test Time Test Comments Results Result Comments Source URINALYSIS, COMPLETE, WITH REFLEX TO CULTURE 2020-01-07 04:5 7:00 Test Item Value Reference Range Interpretation Comme nts Color, UA (test code = 5778-6) YELLOW YELLOW Appearance (test code = 5767-9) CLEAR CLEAR Specific gravity, urine (test code 1.024 1.001-1.035 = 5811-5) pH, urine (test code = 5803-2) 7.0 5.0-8.0 Glucose, urine (test code = 1+ NEGATIVE A 76329-7) Bilirubin, UA (test code = 5770-3) NEGATIVE NEGATIVE Ketones, UA (test code = 2514-8) TRACE NEGATIVE A Occult blood, urine (test code = TRACE NEGATIVE A 5794-3) Protein, UA (test code = 48918-6) NEGATIVE NEGATIVE Nitrite, UA (test code = 5802-4) NEGATIVE NEGATIVE Leukocyte esterase, UA (test code TRACE NEGATIVE A = 5799-2) WBC, UA (test code = 5821-4) 6-10 < OR = 5 /HPF A RBC, UA (test code = 84454-7) 3-10 < OR = 2 /HPF A Squamous epithelial cells, UA 0-5 < OR = 5 /HPF (test code = 14660-6) Bacteria, UA (test code = 5769-5) FEW NONE SEEN /HPF A Hyaline casts, UA (test code = NONE SEEN NONE SEEN /LPF 5796-8) RAC (test code = RAC) Performing Organization Information: Site ID: RGA [facility]: [facility] Address: [address] [place] [id number] Director: Wesley Leal Lab Interpretation (test code = Abnormal 25486-9) [facility] [id number] 04:57:00Urine cultureComment: CULTURE, URINE, ROUTINE Micro Number: [id number] Test Status: F inal Specimen Source: URINE Specimen Quality: Adequate Result: No Growth Dragonfly MUSCATINEPerforming Organization Information: Site ID: RGA Name: [facility] Address: [address] [place] [id number] Director: [facility] urinalysis [id number] 15:59:00 Test Item Value Reference Range Interpretation Comments Color urine, POC (test code = Yellow 4326173) Clarity urine, POC (test code Clear = 6981568) Glucose urine, POC (test code Negative Negative = 9791651) Bilirubin urine, POC (test Negative Negative code = 0813556) Ketones urine, POC (test code Trace Negative A = 7858440) Specific gravity urine, POC 1.010 1.005-1.030 (test code = 7851155) Blood urine, POC (test code = Trace Negative A 5740519) pH urine, POC (test code = 5.0 5.0, 5.5, 6.0, 6.5, 6720514) 7.0, 7.5, 8.0, 8.5 Protein urine, POC (test code Negative Negative = 6842678) Urobilinogen urine, POC (test <2.0 <2.0 code = 0307238) Nitrite urine, POC (test code Negative Negative = 2964587) Leukocyte esterase urine, POC Negative Negative (test code = 1962981) Lab Interpretation (test code Abnormal = 56515-1) [facility] [id number] 11:36:14 Test Item Value Reference Range Interpretation Comments Case number (test code = [id number]) Surgical pathology See link below for report (test code = PDF Lab Report 2255) Result status (test code This is Final Report = [id number]) for [id number] Silva [id number] 08:20:03Le Coleman 11/04/2019 8:20 AMAirwayDate/Time: 11/04/2019 8:20 AMPerformed by: Le Coleman JAuthorized by: Dmitry Su MD Location: ORUrgency: ElectiveDifficult Airway: No Anesthesiologist: Dmitry Su, MDResident/MIDDLE SCHOOL MATH TEACHER/AA: Le Coleman JPerformed by: resident/[employer]CHO[employer] MATH TEACHER/AAPreoxygenated with 100% O2: Yes C-spine Precautions Maintained Throughout: Yes Mask Ventilation: Not attemptedFinal Airway Type: Supraglottic airwayFinal LMA: UniqueLMA Size: 5Number of Attempts atApproach: 1[facility] MethodistECG Pre/Post [id number] 07:14:10 Test Item Value Reference Range Interpretation Comments Ventricular rate (test 53 code = 253) Atrial rate (test code = 53 255) TN interval (test code = 156 266) QRSD interval (test code 88 = 260) QT interval (test code = 424 264) QTC interval (test code 397 = 265) P axis 1 (test code = 27 267) QRS axis 1 (test code = -12 268) T wave axis (test code = 51 270) EKG impression (test Sinus code = 273) bradycardia-Otherwise normal ECG-No previous ECGs available-Electronica lly Signed By Elvis Schafer MD ([id number]) on 11/01/2019 7:14:06 AM Ricardo RandleCOVID-19 qualitative [id number] 02:02:17 Test Item Value Reference Range Interpretation Comments Interpretation (test Negative results do code = 5259137) not preclude 2019-nCoV infection and should not be used as the sole basis for treatment or other patient management decisions. Negative results must be combined with clinical observations, patient history, and epidemiological information. COVID-19 qualitative Not-Detected Not-Detected PCR result (test code = 15201-8) COVID-19 qualitative See link below for C ase Number: PCR (test code = PDF Lab Report [id number]) Ricardo MethodistType and [id number] 18:18:00 Test Item Value Reference Range Interpretation Comments ABO grouping (test code = 883-9) O Rh type (test code = 55783-3) POS Antibody screen (gel) (test code = NEG 890-4) Silva MethodistUrinalysis, automated with [id number] 17:35:54 Test Item Value Reference Range Interpretation Comments Color, UA (test code = 5778-6) Yellow Appearance, UA (test code = 5767-9) Cloudy Specific gravity, UA (test code = 1.018 1.001-1.035 5811-5) pH, UA (test code = 5803-2) 8.0 5.0-8.5 Protein, UA (test code = 63544-7) Negative Negative Glucose, UA (test code = 91881-9) Negative Negative Ketones, UA (test code = 2514-8) Negative Negative Bilirubin, UA (test code = 5770-3) Negative Negative Blood, UA (test code = 5794-3) Negative Negative Nitrite, UA (test code = 5802-4) Negative Negative Urobilinogen, UA (test code = 2.0 <2.0 A 12108-0) Leukocyte esterase, UA (test code = Negative Negative 5799-2) Epithelial cells, UA (test code = Few Few /HPF 5787-7) WBC, UA (test code = 5821-4) 0-5 0- 1 /HPF RBC, UA (test code = 80639-2) 0-5 0- 5 /HPF Bacteria, UA (test code = 23976-6) None seen None seen Amorphous crystals (test code = Few 50884-9) Yeast, UA (test code = 73481-1) None seen Yeast with pseudohyphae, UA (test None seen code = 23688-1) Lab Interpretation (test code = Abnormal 76060-0) [facility] MethodistManual [id number] 17:29:13 Test Item Value Reference Range Interpretation Comments Manual differential (test code = PERFORMED 77143-4) Neutrophils (test code = 23.0 % 39-69 L 51155-6) Lymphocytes (test code = 74.0 % 25-45 H 21334-4) Monocytes (test code = 14950-2) 3.0 % 0-10 Eosinophils (test code = 0.0 % 0-5 92740-4) Basophils (test code = 11534-3) 0.0 % 0-1 Metamyelocytes (test code = 0 % 740-1) Promyelocytes (test code = 0 % 783-1) Platelet slide review (test code Jay adequate = 08258-5) Lab Interpretation (test code = Abnormal 76996-7) Silva MethodistCBC with platelet and [id number] 17:16:58 Test Item Value Reference Range Interpretation Comments WBC (test code = 17588-9) 15.23 4.50- 11.00 k/uL H RBC (test code = 47879-5) 4.67 m/uL 4.4-6 HGB (test code = 718-7) 13.9 g/dL 14-18 L HCT (test code = 4544-3) 42.6 % 41-51 MCV (test code = 787-2) 91.2 fL 82-100 MCH (test code = 785-6) 29.8 pg 27-34 MCHC (test code = 786-4) 32.6 g/dL 31-37 RDW - SD (test code = 83129-3) 47.1 fL 37-55 MPV (test code = 93944-3) 10.3 fL 8.8-13.2 Platelet count (test code = 221 150- 400 k/uL 31866-9) Nucleated RBC (test code = 0.00 /100 WBC 58035-8) Neutrophils (test code = 54192-0) 23.0 % 39-69 L Lymphocytes (test code = 19432-9) 74.0 % 25-45 H Monocytes (test code = 35412-9) 3.0 % 0-10 Eosinophils (test code = 57378-5) 0.0 % 0-5 Basophils (test code = 61513-3) 0.0 % 0-1 Lab Interpretation (test code = Abnormal 12639-5) Silva MethodistHemoglobin [id number] 15:40:24 Test Item Value Reference Range Interpretation Comments Hemoglobin A1C (test 5.2 % 4-5.6 HbA1c c utoffs for code = 41315-0) diagnosing d iabetes:4.0% - 5.6% = normal 5.7% - 6.4% = increase d risk for diabetes (prediabetes)9> =6.5% = aytseyty5Nqmal for glycemic contro l (ADA 2016)< 7.0% Ta rget for non denise lts with diabetes. More or less stringent targe ts may be appropriate for individual eligio ents. <7.5% Target for Children and ad olescents with type 1 javi betes. Ricardo MethodistBasic metabolic [id number] 15:39:52 Test Item Value Reference Range Interpretation Comments Sodium (test code = 2951-2) 141 135- 148 mEq/L Potassium (test code = 2823-3) 4.6 3.5- 5.0 mEq/L Chloride (test code = 2075-0) 105 98- 112 mEq/L CO2 (test code = 2027-9) 28 24- 31 mEq/L Anion gap (test code = 04546-6) 8@ANIO 7- 15 mEq/L BUN (test code = 3094-0) 20 mg/dL 8-23 Creatinine (test code = 2160-0) 0.70 mg/dL 0.7-1.2 Glucose (test code = 2345-7) 139 mg/dL 65-99 H Calcium (test code = 71417-2) 9.5 mg/dL 8.8-10.2 Lab Interpretation (test code = Abnormal 38853-5) Ricardo MethodistEstimated [id number] 15:39:52 Test Item Value Reference Range Interpretation Comments Estimated GFR (test >=90 mL/min/1.73 m2 [facility] Units code = 5488) InterpretationG 1 >=90 Normal or highG2 60-89 Mildly gvyioimfaB7n 45-59 Mildly to mode rately ptbrizyggP9i 30-44 Moderately to severely decreasedG4 15-29 Severely decre asedG5 <15 Kidn ey failureThe eGFR was calculated kemi pavon the Chronic Kidney Disease Epidemiology Co llaboration (CKD-EPI) equat ion. Interpretation is based on recommendations of the National Kidney Foundation-Kidn ey Disease Outcomes Qualit y Initiative (NKF-KDOQI) pub lished in 2014. Ricardo RandleUS [id number] 12:43:27Hm Interface, Radiology Results 09/16/2019 12:46 PM CDTEXAMINATION: US SCROTALCLINICAL HISTORY: N50.811 Right testicular pain, right testiscle painCOMPARISON: None.TECHNIQUE: Sonographicevaluation of the scrotum. Real-time B mode grayscale, Doppler spectral analysis and Doppler color flow imaging was used to assess testicular vasculature.FINDINGS:RIGHT HEMISCROTUM: The right testicle measures 4.7 x 2.3 x 3.3 cm. Testicular echogenicity is normal. No intratesticular masses are identified. There is normal color and duplex Doppler flow. Multiple right epididymal head cysts, the largestmeasuring up to 2.3 cm. The right epididymis is otherwise unremarkable. Moderately sized hydrocele. Varicocele.LEFT HEMISCROTUM: The left testicle measures 4.6 x 2.0 x 3.3 cm. Testicular echogenicity is normal. No intratesticular masses are identified. There is normal color and duplex Doppler flow. The left epididymis is otherwise unremarkable. There is no evidence of hydrocele or varicocele.IMPRESSIO N:1.Right-sided varicocele.2.Moderate right hydrocele.3.Right epididymal head cysts, measuring up to2.3 cm, benign.[facility]-[id number] and approved by vice president mission integration/fellow: Gal Cook M.D.I, Stuart Knutson MD, personally reviewed the images and resident's/fellow's findings and agree with thefinal report.[facility] MethodistProstate specific [id number] 05:15:00 Test Item Value Reference Range Interpretation Comments PSA (test 2.1 ng/mL < OR = 4.0 The total PSA v alue code = from this assay system 2857-1) is standardized against the WHO standar d. The test result kailee l be approximately 2 0% lower when compared t o the equimolar-stand ardized total PSA (Riddle Scarosso [place]). Moises rison of serial PSA resu lts should be inter preted with this fact in mind. This test was p erformed using the Chic[place] ns chemiluminescen t method. Values obtained from different assay methods cannot be usedinterchange ably. PSA levels, reg ardless ofvalue, should not be interpreted as absoluteevidenc e of the presence or abs ence of disease. RAC (test Performing code = RAC) Organization Information: Site ID: RGA Name: [facility] Address: [address] [place] [phone] Director: Wesley Leal [facility] Mor[facility]US [id number] 12:45:08Hm Interface, Radiology Results Incoming - 06/07/2019 12:48 PM CDTEXAMINATION: US RENALCLINICAL HISTORY: N40.1 Benign prostatic hyperplasia with lower urinary tract symptoms, N13.8 Other obstructive and reflux uropathy, utiCOMPARISON: None.FINDINGS: The kidneys are normal in size and echogenicity. There is no evidence of renal mass or hydronephrosis.The right kidney measures 11.1 cm X 5.8 cm X 4.4 cm. Renal cortex 1.6 cmThe left kidney measures 12.0 cm X 6.2 cm X 5.3 cm. 1.8 cm. 6 mm nonobstructing parenchymal calculus upper pole left kidneyThe urinary bladder is nondistended. 9 mm linear calcification at the bladder floor possibly related to prostate. Prostate 4.1 cm x 3.5 cm x 3.1 cm.IMPRESSION:Normal-appearing kidneysModerate size prostate with suspected coarse benign calcificationST [id number] [facility]
--- NOTE | 2020-03-05 12:18 | RAD REPORT ---
EXAM DESCRIPTION: RAD - Chest Single View - 03/05/2020 11:49 am CLINICAL HISTORY: Cough;Dyspnea Chest pain. COMPARISON: Chest Pa And Lat (2 Views) dated 09/15/2019; Abdomen 1 View (KUB) dated 07/08/2016; Chest Pa And Lat (2 Views) dated 03/25/2016; ABDOMEN 1 VIEW KUB dated 06/23/2015 FINDINGS: Portable technique limits examination quality. Moderate bilateral interstitial lung opacities are present most compatible with pneumonia. The heart is mildly enlarged in size. No displaced fractures.
[2020-03-05 12:30] LABS: Protime INR 1.27
[2020-03-05 12:34] LABS: ALT/SGPT 65 U/L (12-78); AST/SGOT 70 U/L (15-37); Albumin 2.5 g/dL (3.4-5.0); Alkaline Phosphatase 96 U/L (45-117); BUN Blood Urea Nitrogen 25 mg/dL (7-18); Bicarbonate 25 mmol/L (21-32); Bilirubin Direct 0.2 mg/dL (0-0.2); Bilirubin Total 0.6 mg/dL (0.2-1.0); Glucose Level 116 mg/dL (74-106); Lipase 105 U/L (73-393); Potassium 4.1 mmol/L (3.5-5.1); Protein, Total 7.3 g/dL (6.4-8.2); Sodium Level 143 mmol/L (136-145); Troponin (Emerg Dept Use Only) < 0.02 ng/mL (0.0-0.045)
[2020-03-05] MEDS ORDERED: dexAMETHasone 10 MG/ML VIAL ONE (13:12)
[2020-03-05] MEDS ORDERED: NA CHLORIDE 0.9% 1,000 ML ONE ×2 (13:12→18:34)
[2020-03-05] MEDS ORDERED: ONDANSETRON 4 MG/2 ML VIAL ONE (13:12)
[2020-03-05] MEDS ORDERED: AZITHROMYCIN IV 500 MG in NA CHLORIDE 0.9% 250 ML IVPB ONE (13:15)
--- NOTE | 2020-03-05 15:02 | RAD REPORT ---
EXAM DESCRIPTION: CT - Chest For Pe Angio - 03/05/2020 2:34 pm CLINICAL HISTORY: Chest pain COMPARISON: None. TECHNIQUE: Dynamically enhanced axial 3 mm thick images of the chest were obtained during administra tion of <100> mL Isovue 370 IV contrast. Coronal and oblique reconstruction images were generated and reviewed. Exam utilizes a protocol for optimal evaluation of pulmonary arterial tree. Maximum intensity projections 3D imaging was utilized All CT scans are performed using dose optimization technique as appropriate and may include automated exposure control or mA/KV adjustment according to patient size. FINDINGS: A pulmonary embolus is not seen. A thoracic aortic aneurysm is not noted. A pleural effusion is not seen. A pericardial effusion is not seen. Marked bilateral ground-glass opacities within the lungs IMPRESSION: Negative for a pulmonary embolism. Marked bilateral ground-glass opacities within the lungs can be seen with Covid pneumonia
[2020-03-05] MEDS ORDERED: ACETAMINOPHEN 500 MG TAB ONE (15:03)
--- NOTE | 2020-03-05 15:14 | ER ---
Nurse's Notes [facility] Name: Moshe Neff Age: 65 yrs Sex: Male : 1955 Arrival Date: 03/05/2020 Time: 11:10 Bed 15 Private MD: Diagnosis: Coronavirus infection, [id number];Hypoxia;Pneumonia, unspecified organism Presentation: 03/05 11:05 Chief complaint: EMS states: pt tested POSITIVE for Covid Dec 3 states symptoms started tw2 Feb 24, reports difficulty breathing with increased generalized weakness, hx: HTN. Coronavirus screen: difficulty breathing, Client presents with at least one sign or symptom that may indicate coronavirus-19. Standard/surgical mask placed on the client. Provider contacted for isolation considerations. Client reports previous positive COVID test result. tested positive 2019. Ebola Screen: Patient denies travel to an Ebola-affected area in the 21 days before illness onset. 11:05 Method Of Arrival: EMS: [facility] tw2 11:06 Initial Sepsis Screen: Does the patient meet any 2 criteria? RR > 20 per min. Initial tw2 Sepsis Screen: Does the patient meet any 2 criteria? No. Patient's initial sepsis screen is negative. Does the patient have a suspected source of infection? Yes: Productive cough/pneumonia. Risk Assessment: Do you want to hurt yourself or someone else? Patient reports no desire to harm self or others. Onset of symptoms was March 05, 2020. 11:06 Acuity: CARLOS 3 tw2 Triage Assessment: 11:06 General: Appears in no apparent distress. well groomed, Behavior is calm, cooperative, tw2 appropriate for age. Pain: Denies pain. Respiratory: Reports shortness of breath at rest on exertion Onset: The symptoms/episode began/occurred over the weekend, the patient has moderate shortness of breath. Historical: - Allergies: 11:24 No Known Allergies; tw2 - Home Meds: 11:24 Bystolic 5 mg oral tab 1 tab once daily [Active]; calcium PO daily [Active]; tw2 - PMHx: 11:24 Hypertension; tw2 - Immunization history:: Adult Immunizations. - Social history:: Smoking status: . Screenin:25 Abuse screen: Denies threats or abuse. Nutritional screening: No deficits noted. tw2 Tuberculosis screening: No symptoms or risk factors identified. Fall Risk None identified. Assessment: 11:05 General: Appears in no apparent distress. well groomed, Behavior is calm, cooperative, tw2 appropriate for age. Pain: Denies pain. Neuro: Level of Consciousness is awake, alert, obeys commands, Oriented to person, place, time, situation. Cardiovascular: Heart tones S1 S2 Patient's skin is warm and dry. Rhythm is regular. Respiratory: Reports shortness of breath at rest on exertion Airway is patent Respiratory effort is even, unlabored, Respiratory pattern is regular, tachypnea Breath sounds are diminished bilaterally. GI: Abdomen is round non-distended, Bowel sounds present X 4 quads. : No signs and/or symptoms were reported regarding the genitourinary system. EENT: No signs and/or symptoms were reported regarding the EENT system. Derm: No signs and/or symptoms reported regarding the dermatologic system. Musculoskeletal: Range of motion: intact in all extremities. 12:23 Reassessment: No changes from previously documented assessment. Patient and/or family tw2 updated on plan of care and expected duration. Pain level reassessed. 13:04 Reassessment: No changes from previously documented assessment. Patient and/or family tw2 updated on plan of care and expected duration. Pain level reassessed. 13:44 Reassessment: No changes from previously documented assessment. Patient and/or family tw2 updated on plan of care and expected duration. Pain level reassessed. 14:44 Reassessment: No changes from previously documented assessment. Patient and/or family tw2 updated on plan of care and expected duration. Pain level reassessed. Vital Signs: 11:06 BP 121 / 71; Pulse 73; Resp 24; Temp 96.9(O); Pulse Ox 84% on R/A; Weight 97.98 kg (R); tw2 Height 5 ft. 5 in. (165.10 cm); Pain 0/10; 11:25 Pulse 72; Resp 26; Pulse Ox 93% on 2 lpm NC; tw2 12:22 BP 138 / 69; Pulse 69; Resp 36; Pulse Ox 90% on 3 lpm NC; tw2 13:04 BP 129 / 74; Pulse 69; Resp 24; Pulse Ox 92% on 3 lpm NC; tw2 13:44 BP 120 / 64; Pulse 67; Resp 30; Temp 100.1(O); Pulse Ox 94% on 3 lpm NC; tw2 14:44 BP 132 / 67; Pulse 74; Resp 27; Temp 100.6(O); Pulse Ox 94% on 4 lpm NC; tw2 15:45 BP 126 / 70; Pulse 68; Resp 28; Pulse Ox 92% on 4 lpm NC; tw2 16:45 BP 143 / 77; Pulse 64; Resp 27; Pulse Ox 90% on 4 lpm NC; tw2 17:30 BP 134 / 72; Pulse 60; Resp 17; Pulse Ox 90% on 4 lpm NC; tw2 17:55 Temp 99.4(O); tw2 11:06 Body Mass Index 35.95 (97.98 kg, 165.10 cm) tw2 11:06 pt placed on 2L NC at this time, will continue to monitor tw2 12:22 provider notified of need for increase on oxygen at this time. tw2 ED Course: 11:05 Arm band placed on. tw2 11:05 Placed in gown. Bed in low position. portfolio administrator on. Pulse ox on. NIBP on. tw2 11:10 Patient arrived in ED. tw2 11:10 Saumya Llamas FNP-C is [facility]. kb 11:10 Shalom Bautista MD is Attending Physician. kb 11:16 Triage completed. tw2 11:23 Kayce Hoffmann, DESI is Primary Nurse. tw2 12:09 CXR XRAY In Process Unspecified. EDMS 13:00 Inserted saline lock: 20 gauge in right antecubital area, using aseptic technique. tw2 ,using aseptic technique. ,Tech Blood collected. 15:08 Fredrick Medellin MD is Hospitalizing Provider. kb 17:59 Report given to DESI Kate. tw2 17:59 No provider procedures requiring assistance completed. Patient admitted, IV remains in tw2 place. 03/06 06:38 Primary Nurse role handed off by Kayce Hoffmann RN sg 12:53 Tarun Mallory, DESI is Primary Nurse. bp Administered Medications: 03/05 13:00 Drug: Zofran (Ondansetron) 4 mg Route: IVP; Site: right antecubital; tw2 13:45 Follow up: Response: No adverse reaction tw2 13:00 Drug: NS 0.9% 1000 ml Route: IV; Rate: 1000 ml; Site: right antecubital; tw2 14:57 Follow up: Response: No adverse reaction; IV Status: Completed infusion; IV Intake: tw2 1000ml 13:03 Drug: Decadron - Dexamethasone 10 mg Route: IVP; Site: right antecubital; tw2 13:45 Follow up: Response: No adverse reaction tw2 13:43 Drug: Zithromax 500 mg Route: IVPB; Infused Over: 1 hrs; Site: right antecubital; tw2 14:45 Follow up: Response: No adverse reaction; IV Status: Completed infusion; IV Intake: tw2 250ml 14:56 Drug: Tylenol 1000 mg Route: PO; tw2 17:54 Follow up: Response: No adverse reaction; Temperature is decreased tw2 Intake: 14:45 IV: 250ml; Total: 250ml. tw2 14:57 IV: 1000ml; Total: 1250ml. tw2 Output: 16:29 Urine: 200ml (Voided); Total: 200ml. tw2 Outcome: 15:08 Decision to Hospitalize by Provider. kb 17:59 Admitted to ER Hold. Please see [facility] for further documentation. tw2 17:59 Condition: stable 17:59 Instructed on the need for admit. 03/06 13:50 Patient left the ED. bp Signatures: Dispatcher [employer] Saumya Knapp, DEBORAH CUELLAR-Les Mcfarlane RN RN sg Kayce Hoffmann RN RN tw2 Tarun Mallory RN RN bp
--- NOTE | 2020-03-05 15:14 | EDPHYS ---
Physician Documentation [facility] Name: Moshe Neff Age: 65 yrs Sex: Male : 1955 Arrival Date: 03/05/2020 Time: 11:10 Bed 15 Private MD: ED Physician Shalom Bautista HPI: 03/05 15:09 This 65 yrs old Male presents to ER via EMS with complaints of Shortness Of kb Breath, General Weakness. 15:09 The patient has shortness of breath at rest. The patient has not experienced similar kb symptoms in the past. The patient has not recently seen a physician. 15:09 The patient presents to the emergency department with nausea, vomiting. Onset: The kb symptoms/episode began/occurred 3 day(s) ago. Possible causes: COVID. The symptoms are aggravated by nothing. The symptoms are alleviated by nothing. Associated signs and symptoms: Pertinent positives: fever, nausea, vomiting. Severity of symptoms: At their worst the symptoms were moderate in the emergency department the symptoms are unchanged. Daughter reports pt was recently diagnosed with COVID-19. States he has had nausea and vomiting for 3 days and has been unable to tolerate anything PO so he is getting weak.. Historical: - Allergies: 11:24 No Known Allergies; tw2 - Home Meds: 11:24 Bystolic 5 mg oral tab 1 tab once daily [Active]; calcium PO daily [Active]; tw2 - PMHx: 11:24 Hypertension; tw2 - Immunization history:: Adult Immunizations. - Social history:: Smoking status: . ROS: 12:51 Constitutional: Negative for fever, chills, and weight loss, Back: Negative for injury kb and pain, MS/Extremity: Negative for injury and deformity, Skin: Negative for injury, rash, and discoloration, Neuro: Negative for headache, numbness, tingling, and seizure. +weakness 12:51 Respiratory: Positive for cough, shortness of breath. 12:51 Abdomen/GI: Positive for nausea and vomiting, Negative for abdominal pain. Exam: 11:43 Constitutional: This is a well developed, well nourished patient who is awake, alert, kb and in no acute distress. Head/Face: Normocephalic, atraumatic. Chest/axilla: Normal chest wall appearance and motion. Nontender with no deformity. No lesions are appreciated. Cardiovascular: Regular rate and rhythm with a normal S1 and S2. No gallops, murmurs, or rubs. Normal PMI, no JVD. No pulse deficits. Respiratory: Lungs have equal breath sounds bilaterally, clear to auscultation and percussion. No rales, rhonchi or wheezes noted. No increased work of breathing, no retractions or nasal flaring. Abdomen/GI: Soft, non-tender, with normal bowel sounds. No distension or tympany. No guarding or rebound. No evidence of tenderness throughout. Skin: Warm, dry with normal turgor. Normal color with no rashes, no lesions, and no evidence of cellulitis. MS/ Extremity: Pulses equal, no cyanosis. Neurovascular intact. Full, normal range of motion. Neuro: Awake and alert, GCS 15, oriented to person, place, time, and situation. Cranial nerves II-XII grossly intact. Motor strength 5/5 in all extremities. Sensory grossly intact. Cerebellar exam normal. Normal gait. 11:43 ECG was reviewed by the Attending Physician. Vital Signs: 11:06 BP 121 / 71; Pulse 73; Resp 24; Temp 96.9(O); Pulse Ox 84% on R/A; Weight 97.98 kg (R); tw2 Height 5 ft. 5 in. (165.10 cm); Pain 0/10; 11:25 Pulse 72; Resp 26; Pulse Ox 93% on 2 lpm NC; tw2 12:22 BP 138 / 69; Pulse 69; Resp 36; Pulse Ox 90% on 3 lpm NC; tw2 13:04 BP 129 / 74; Pulse 69; Resp 24; Pulse Ox 92% on 3 lpm NC; tw2 13:44 BP 120 / 64; Pulse 67; Resp 30; Temp 100.1(O); Pulse Ox 94% on 3 lpm NC; tw2 14:44 BP 132 / 67; Pulse 74; Resp 27; Temp 100.6(O); Pulse Ox 94% on 4 lpm NC; tw2 15:45 BP 126 / 70; Pulse 68; Resp 28; Pulse Ox 92% on 4 lpm NC; tw2 16:45 BP 143 / 77; Pulse 64; Resp 27; Pulse Ox 90% on 4 lpm NC; tw2 17:30 BP 134 / 72; Pulse 60; Resp 17; Pulse Ox 90% on 4 lpm NC; tw2 17:55 Temp 99.4(O); tw2 11:06 Body Mass Index 35.95 (97.98 kg, 165.10 cm) tw2 11:06 pt placed on 2L NC at this time, will continue to monitor tw2 12:22 provider notified of need for increase on oxygen at this time. tw2 MDM: 11:11 Patient medically screened. kb 11:44 Data reviewed: vital signs, nurses notes. Data interpreted: Pulse oximetry: on room air kb is 84 %. Interpretation: hypoxia. Plan: O2 by NC applied. 15:07 Counseling: I had a detailed discussion with the patient and/or guardian regarding: the kb historical points, exam findings, and any diagnostic results supporting the discharge/admit diagnosis, lab results, radiology results, the need for further work-up and treatment in the hospital. Physician consultation: A Lacie MD was contacted at 15:08, regarding admission, to the medical/surgical unit. patient's condition, and will see patient. 03/05 11:17 Order name: Flu; Complete Time: 12:19 kb 03/05 11:17 Order name: Blood Culture Adult (2) kb 03/05 11:17 Order name: BMP; Complete Time: 12:46 kb 03/05 11:17 Order name: C-Reactive Protein; Complete Time: 12:46 kb 03/05 11:17 Order name: CBC with Diff; Complete Time: 11:45 kb 03/05 11:17 Order name: D-Dimer; Complete Time: 12:46 kb 03/05 11:17 Order name: Ferritin; Complete Time: 12:46 kb 03/05 11:17 Order name: Lactate; Complete Time: 12:47 kb 03/05 11:17 Order name: LFT's; Complete Time: 12:46 kb 03/05 11:17 Order name: Lipase; Complete Time: 12:47 kb 03/05 11:17 Order name: Procalcitonin; Complete Time: 12:47 kb 03/05 11:17 Order name: PT-INR; Complete Time: 12:46 kb 03/05 11:17 Order name: Ptt, Activated; Complete Time: 12:47 kb 03/05 11:17 Order name: Troponin (emerg Dept Use Only); Complete Time: 12:47 kb 12/07 11:17 Order name: CXR XRAY; Complete Time: 12:47 kb 03/05 11:17 Order name: EKG; Complete Time: 11:34 kb 03/05 11:17 Order name: Cardiac monitoring; Complete Time: 12:02 kb 03/05 12:57 Order name: CT Chest For PE Angio kb 03/05 15:05 Order name: CT; Complete Time: 15:06 EDMS 03/05 16:38 Order name: Urine Dipstick--Ancillary (enter results) bd 03/05 17:06 Order name: Urine Dipstick-Ancillary; Complete Time: 17:07 EDMS 03/06 07:26 Order name: CBC with Automated Diff EDMS 03/06 07:26 Order name: Basic Metabolic Panel EDMS 03/06 07:26 Order name: NT PRO-BNP EDMS 03/05 11:17 Order name: Droplet/Contact Precautions; Complete Time: 12:02 kb 03/05 11:17 Order name: EKG - Nurse/Tech; Complete Time: 12:03 kb 03/05 11:17 Order name: IV Start; Complete Time: 12:03 kb 03/05 11:17 Order name: Labs collected and sent; Complete Time: 12:03 kb 03/05 11:17 Order name: O2 Per Protocol; Complete Time: 12:08 kb 03/05 11:17 Order name: O2 Sat Monitoring; Complete Time: 12:08 kb 03/05 11:17 Order name: Urine Dipstick-Ancillary (obtain specimen); Complete Time: 16:29 kb 03/05 11:53 Order name: Labs - recollect needed; Complete Time: 12:17 bd EC:43 Rate is 72 beats/min. Rhythm is regular. QRS [place] is Normal. LA interval is normal at kb 152 msec. QRS interval is normal at 84 msec. QT interval is normal at 396 msec. Administered Medications: 13:00 Drug: Zofran (Ondansetron) 4 mg Route: IVP; Site: right antecubital; tw2 13:45 Follow up: Response: No adverse reaction tw2 13:00 Drug: NS 0.9% 1000 ml Route: IV; Rate: 1000 ml; Site: right antecubital; tw2 14:57 Follow up: Response: No adverse reaction; IV Status: Completed infusion; IV Intake: tw2 1000ml 13:03 Drug: Decadron - Dexamethasone 10 mg Route: IVP; Site: right antecubital; tw2 13:45 Follow up: Response: No adverse reaction tw2 13:43 Drug: Zithromax 500 mg Route: IVPB; Infused Over: 1 hrs; Site: right antecubital; tw2 14:45 Follow up: Response: No adverse reaction; IV Status: Completed infusion; IV Intake: tw2 250ml 14:56 Drug: Tylenol 1000 mg Route: PO; tw2 17:54 Follow up: Response: No adverse reaction; Temperature is decreased tw2 Disposition: 03/05/20 15:08 Hospitalization ordered by Fredrick Medellin for Inpatient Admission. Preliminary diagnosis are Coronavirus infection, unspecified - COVID-19, Hypoxia, Pneumonia, unspecified organism. - Bed requested for Intensive Care Unit. - Status is Inpatient Admission. bp - Condition is Stable. - Problem is new. - Symptoms are unchanged. Addendum: 03/07/2020 19:44 Co-signature as Attending Physician, Shalom Bautista MD. r n Signatures: Dispatcher [employer] [facility] Saumya Llamas, MINUTE CLERK-C MINUTE CLERK-Ckb Jenn Russo Deana, RN RN dm5 Chelle Mills RN DESI Shalom Bautista MD MD rn Wise, Tara, RN RN tw2 Tarun Mallory RN RN bp Corrections: (The following items were deleted from the chart) 03/05 11:36 11:29 Chest Single View ordered. [facility] 15:10 12:51 Constitutional: Negative for fever, chills, and weight loss, Back: Negative for kb injury and pain, MS/Extremity: Negative for injury and deformity, Skin: Negative for injury, rash, and discoloration, Neuro: Negative for headache, weakness, numbness, tingling, and seizure, kb 18:23 15:08 Hospitalization Ordered by Fredrick eMdellin MD for Inpatient Admission. Preliminary dm5 diagnosis is Coronavirus infection, unspecified - COVID-19; Hypoxia; Pneumonia, unspecified organism. Bed requested for Telemetry/MedSurg (Inpatient). Status is Inpatient Admission. Condition is Stable. Problem is new. Symptoms are unchanged. kb 03/06 12:14 03/05 18:23 03/05/2020 15:08 Hospitalization Ordered by A Lacie RODRIGUES for Inpatient dw Admission. Preliminary diagnosis is Coronavirus infection, unspecified - COVID-19; Hypoxia; Pneumonia, unspecified organism. Bed requested for [facility] ER HOLD. Status is Inpatient Admission. Condition is Stable. Problem is new. Symptoms are unchanged. dm5 03/06 13:50 12:14 03/05/2020 15:08 Hospitalization Ordered by A Lacie RODRIGUES for Inpatient Admission. bp Preliminary diagnosis is Coronavirus infection, unspecified - COVID-19; Hypoxia; Pneumonia, unspecified organism. Bed requested for Intensive Care Unit. Status is Inpatient Admission. Condition is Stable. Problem is new. Symptoms are unchanged. dw
[2020-03-05 17:05] LABS: Urine Blood TRACE (NEG); Urine Glucose NEGATIVE (NEG); Urine Protein 2+ (NEG)
[2020-03-05] MEDS ORDERED: ACETAMINOPHEN 500 MG TAB PO PRN (17:57)
[2020-03-05] MEDS ORDERED: ONDANSETRON 4 MG/2 ML VIAL IV PRN (17:57)
[2020-03-05] MEDS: NA CHLORIDE 0.9% 1,000 ML IV SCH (17:57)
[2020-03-05] MEDS: METHYLPREDNISOLONE 40 MG INJ IV SCH (18:00)
[2020-03-05] MEDS ORDERED: METHYLPREDNISOLONE 40 MG INJ ONE (18:34)
[2020-03-05] MEDS: APIXABAN 5 MG TABLET PO SCH (21:55)
[2020-03-05] MEDS ORDERED: APIXABAN 5 MG TABLET ONE (22:39)
[2020-03-06] MEDS: METHYLPREDNISOLONE 40 MG INJ IV SCH ×2 (00:12→06:00)
[2020-03-06] MEDS ORDERED: METHYLPREDNISOLONE 40 MG INJ ONE ×2 (00:28→05:30)
[2020-03-06 05:32] LABS: Absolute Lymphocytes (CBC) 3.9 K/uL (0.7-4.9); Basophils % 0.4 % (0-1.3); Hematocrit 38.6 % (39.6-49.0); MPV 9.1 fL (7.6-11.3); RBC Red Blood Cell Count 4.33 M/uL (4.33-5.43)
[2020-03-06] MEDS ORDERED: NA CHLORIDE 0.9% 1,000 ML ONE (05:32)
[2020-03-06 05:35] LABS: BUN Blood Urea Nitrogen 22 mg/dL (7-18); Bicarbonate 25 mmol/L (21-32); Glucose Level 211 mg/dL (74-106); NT PRO-BNP 640 pg/mL (<125); Potassium 4.6 mmol/L (3.5-5.1); Sodium Level 144 mmol/L (136-145)
--- NOTE | 2020-03-06 06:38 | HP ---
Date of Admission: 03/05/2020 Chief Complaint: Nausea, vomiting. History Of Present Illness: This is a 65-year-old male patient, who went for COVID-19 tests on March 01, 2020, along with his and they both came back positive. started to have symptoms a few days prior to the test and that is the reason why the patient went to get the test done along with the , but the patient never had any symptoms until after the test was done. Then, he started to have nausea, vomiting in last 2-3 days and has been having hard time keeping himself well hydrated. Denies any shortness of breath, cough. No loss of sense of smell or taste. His oxygen saturation at home was around 84% on room air. I was contacted by family member and the patient was advised to come to the emergency room after he was evaluated in the ER, he was admitted to the hospital. When I saw him in the evening time, his granddaughter who is a nurse at our hospital was at the bedside with him. When the patient arrived in the emergency room, his room air oxygen saturation was 80% and he was maintaining oxygen saturation more than 90% with nasal cannula oxygen when I saw him and he was not in any respiratory distress. Allergies: NO KNOWN ALLERGIES. Medications: Bystolic 5 mg p.o. daily, pantoprazole 40 mg p.o. daily, rosuvastatin 5 mg p.o. daily in the evening. Review of Systems: GI: As mentioned above. All other systems reviewed and negative. Past Medical History: Recently, the patient was diagnosed as having CLL and he is under care of Dr. Soares. Past medical history is also significant for hypertension, mixed hyperlipidemia, impaired fasting glucose, gastroesophageal reflux disease, non-alcoholic fatty liver disease, kidney stone and benign prostatic hypertrophy. Past Surgical History: Significant for arthroscopic knee surgery, lithotripsy, GreenLight laser PVP which is photoselective vaporization of the prostate done on November 04, 2019. Family History: Father with diabetes, sister with diabetes. Social History: Negative for smoking and alcohol use. Physical Examination: Vital Signs: Height 65 inches, weight 216 pounds, temperature 98.4, pulse 59, respiratory rate 36, blood pressure 120/63, oxygen saturation 89%. General: Awake, alert, oriented, not in distress. HEENT: Head atraumatic, normocephalic. Conjunctivae nonerythematous. Sclerae white. Mouth, no thrush or edema noted. Ears/Nose, no mass, lesion, discharge noted. Neck: Supple. No JVD, lymph nodes, bruit, thyromegaly noted. Lungs: Bilateral good equal air entry. Clear to auscultation. No rhonchi. No rales. Heart: Normal heart sounds, no murmur or gallop. Abdomen: Soft, bowel sounds normal. No guarding, rigidity, tenderness, mass, hepatosplenomegaly, distention, or bruit noted. Extremities: No leg edema. No calf tenderness. Skin: No rash, ulcer, cellulitis. Lymphatics: No lymph node enlargement in neck, supraclavicular, infraclavicular region. Neuro: No focal neurological deficit. Chest: Unremarkable. External Genitalia: Deferred. Rectal: Deferred. Laboratory Data: WBC 11.4, hemoglobin 14.1, platelets 288, sodium 143, potassium 4.1, chloride 110, bicarb 25, BUN 25, creatinine 0.80, glucose 116. Liver function tests shows AST 70, ALT 65. Chest x-ray and CT chest shows marked bilateral lung opacities. Impression: 1. COVID-19 infection. 2. COVID-19 pneumonia. 3. Hypertension. 4. Mixed hyperlipidemia. 5. Impaired fasting glucose. 6. Benign prostatic hypertrophy. 7. Gastroesophageal reflux disease. 8. Non-alcoholic fatty liver disease. Plan: Admit the patient to hospital for further evaluation and management of this problem. The patient is appropriate for inpatient and is expected to spend 2 midnights in hospital. We will go ahead and start him on IV antibiotic, which is Zithromax as well as start him on IV steroids per order. We will start him on Eliquis 5 mg 2 times a day. We will continue home medications per order. Consult Dr. Dinero and oxygen support will be given per order. Details and plan of treatment discussed with the patient and the patient's granddaughter who was at bedside. ARIAN/MODL Voice ID: [id number] MTDD
[2020-03-06] MEDS: NA CHLORIDE 0.9% 1,000 ML IV SCH (07:17)
[2020-03-06] MEDS: PANTOPRAZOLE 40MG TABLET PO SCH (08:00)
[2020-03-06] MEDS ORDERED: METHYLPREDNISOLONE 125 MG INJ ONE (08:45)
[2020-03-06] MEDS ORDERED: PANTOPRAZOLE 40MG TABLET PO ONE (08:45)
[2020-03-06] MEDS ORDERED: THIAMINE HCL 100 MG TABLET ONE (08:45)
[2020-03-06] MEDS ORDERED: APIXABAN 5 MG TABLET ONE (08:46)
[2020-03-06] MEDS ORDERED: FAMOTIDINE 20 MG TAB ONE (08:46)
[2020-03-06] MEDS ORDERED: VITAMIN D 1000 UNIT TAB ONE (08:46)
[2020-03-06] MEDS ORDERED: SITAGLIPTIN PHOS 100 MG TAB PO SCH (09:00)
[2020-03-06] MEDS: METHYLPREDNISOLONE 125 MG INJ IV SCH ×2 (09:00→21:23)
[2020-03-06] MEDS: VITAMIN D 1000 UNIT TAB PO SCH (09:00)
[2020-03-06] MEDS ORDERED: ROSUVASTATIN 10 MG TAB PO SCH (09:00)
[2020-03-06] MEDS: FAMOTIDINE 20 MG/2 ML VIAL IV SCH ×2 (09:00→21:21)
[2020-03-06] MEDS ORDERED: AZITHROMYCIN IV 250 MG in NA CHLORIDE 0.9% 250 ML IVPB SCH (09:00)
[2020-03-06] MEDS: SPIRONOLACTONE 25 MG TABLET PO SCH (09:00)
[2020-03-06] MEDS: APIXABAN 5 MG TABLET PO SCH ×2 (09:00→21:25)
[2020-03-06] MEDS: THIAMINE HCL 100 MG TABLET PO SCH (09:00)
[2020-03-06] MEDS: NEBIVOLOL HCL 5 MG TAB PO SCH (09:00)
[2020-03-06] MEDS ORDERED: INFLUENZA VACCINE (for 3y+) 0.5 ML DOSE IMVAC ONE (11:00)
[2020-03-06] MEDS ORDERED: PNEUMOCOCCAL VACCINE 0.5 ML IMVAC ONE (11:00)
--- NOTE | 2020-03-06 12:45 | P.CNS ---
Date of Consult: 03/06/20 Reason for Consult: Pneumonia due to valdez virus Chief Complaint: Respiratory distress History of Present Illness: Patient is 65 years of age was diagnosed with valdez virus on March 01 with his said having nausea vomiting denies any shortness of breath in into the emergency room with low oxygen saturation currently doing well over x-ray does show bilateral pulmonary infiltrates Allergies No Known Allergies Allergy (Verified 08/22/16 08:47) Home Medications: Nebivolol HCl [Bystolic] 5 mg PO DAILY 08/22/16 Rosuvastatin Calcium 5 mg PO DAILY 03/05/20 - Past Medical/Surgical History Diabetic: No -: HTN - Social History Alcohol use: No CD- Drugs: No Caffeine use: Yes Place of Residence: Home Review of Systems is unable to be obtained Physical Examination Temp Pulse Resp BP Pulse Ox 97.8 F 61 25 H 150/76 H 93 03/06/20 08:00 03/06/20 09:00 03/06/20 08:00 03/06/20 09:00 03/06/20 08:00 General: Alert, Mild distress Respiratory: Crackles/rales (Bilaterally) Cardiovascular: No edema, Regular rate/rhythm, Normal S1 S2 - Problems (1) Acute respiratory failure due to severe acute respiratory syndrome coronavirus 2 (SARS-CoV-2) infection Current Visit: Yes Status: Acute Plan: She had is 65 years of age recently diagnosed with coronal virus admitted with respiratory distress chemistries reviewed CRP is markedly elevated DT scan reviewed consistent with valdez virus infection the increase the dose of the Solu-Medrol ticket dispenser changer to BiPAP andRemdesmir ordered from the pharmacy Dc any IV fluids I have added Lasix Dc antibiotic
[2020-03-06] MEDS ORDERED: Remdesivir 200 MG in NA CHLORIDE 0.9% 250 ML IV ONE (13:30)
[2020-03-06] MEDS: FUROSEMIDE 20 MG/ 2ML VIAL IV SCH (14:20)
[2020-03-06] MEDS ORDERED: MELATONIN 3 MG TABLET PO SCH (21:00)
--- NOTE | 2020-03-06 21:06 | PN ---
Date of Progress Note: 03/06/2020 Subjective: Patient was evaluated this morning for followup. He was evaluated via TeleVisit that included audio and video component. As per my discussion with the nursing staff overnight, the patient had hypoxia problem on nasal cannula oxygen, so he was started on high-flow oxygen and was evaluated via TeleVisit that included audio and video component. He was lying in bed, not in any distress, denied any complaints. Hemodynamically, he was stable. Laboratory Data: This morning, white count 10.3, hemoglobin 13, platelets 296. Sodium 144, potassium 4.6, chloride 113, bicarb 25, BUN 22, creatinine 0.83, glucose 211. Impression: 1. COVID-19 infection. 2. COVID-19 pneumonia. 3. Hypertension. 4. Impaired fasting glucose. Plan: The patient's glucose is higher than normal because of IV steroid medication. We will continue antibiotic, steroid per order. Details were discussed with Dr. Dinero and he will evaluate the patient. Continue Eliquis. Details and plan of treatment also discussed with the patient's granddaughter. ARIAN/MODL Voice ID: [id number] Report ID: [id number] ROSELYN
[2020-03-06] MEDS ORDERED: D50W 25 GM/50 ML SYRINGE IV PRN (21:23)
[2020-03-06] MEDS ORDERED: GLUCAGON 1 MG/VIAL IM PRN (21:23)
[2020-03-06] MEDS: INSULIN -REGULAR HUMAN 50 UNIT/0.5 ML ML SQ SCH (22:00)
[2020-03-07 05:53] LABS: ALT/SGPT 123 U/L (12-78); AST/SGOT 139 U/L (15-37); Albumin 2.2 g/dL (3.4-5.0); Alkaline Phosphatase 92 U/L (45-117); Bilirubin Direct 0.1 mg/dL (0-0.2); Bilirubin Total 0.4 mg/dL (0.2-1.0); Ferritin 1424.8 ng/mL (26-388); Protein, Total 6.6 g/dL (6.4-8.2)
[2020-03-07] MEDS: PANTOPRAZOLE 40MG TABLET PO SCH (06:41)
[2020-03-07] MEDS: INSULIN -REGULAR HUMAN 50 UNIT/0.5 ML ML SQ SCH ×4 (07:30→21:00)
[2020-03-07] MEDS ORDERED: D50W 25 GM/50 ML SYRINGE IV PRN (07:36)
[2020-03-07] MEDS ORDERED: GLUCAGON 1 MG/VIAL IM PRN (07:36)
[2020-03-07] MEDS: THIAMINE HCL 100 MG TABLET PO SCH (09:02)
[2020-03-07] MEDS: SPIRONOLACTONE 25 MG TABLET PO SCH (09:02)
[2020-03-07] MEDS: APIXABAN 5 MG TABLET PO SCH ×2 (09:03→21:21)
[2020-03-07] MEDS: ROSUVASTATIN 10 MG TAB PO SCH (09:03)
[2020-03-07] MEDS: VITAMIN D 1000 UNIT TAB PO SCH (09:03)
[2020-03-07] MEDS: FAMOTIDINE 20 MG TAB PO SCH ×2 (09:03→21:21)
[2020-03-07] MEDS: SITAGLIPTIN PHOS 100 MG TAB PO SCH (09:03)
[2020-03-07] MEDS: FUROSEMIDE 20 MG/ 2ML VIAL IV SCH (09:04)
[2020-03-07] MEDS: METHYLPREDNISOLONE 125 MG INJ IV SCH ×3 (09:04→21:22)
[2020-03-07] MEDS: INSULIN GLARGINE 100 UNITS/ML SQ SCH (09:16)
[2020-03-07] MEDS: Remdesivir 100 MG in NA CHLORIDE 0.9% 250 ML IV SCH (09:49)
[2020-03-07] MEDS: NEBIVOLOL HCL 5 MG TAB PO SCH (11:46)
--- NOTE | 2020-03-07 12:01 | P.PN ---
Subjective Date of Service: 03/07/20 Chief Complaint: Respiratory failure from valdez virus Subjective: Improving (Patient's condition is improving appears to have stabilized CRP declining no new complaints tolerating BiPAP) Physical Examination - Vital Signs Temperature: 97.3 F Blood Pressure: 124/72 Pulse: 46 Respirations: 25 Pulse Ox (%): 95 - Physical Exam General: Alert, Cooperative Assessment & Plan - Problems (Diagnosis) (1) Acute respiratory failure due to severe acute respiratory syndrome coronavirus 2 (SARS-CoV-2) infection Current Visit: Yes Status: Acute Plan: Respiratory failure from Crohn or virus is condition is stabilized may be improving CRP is declining continue to wean down on the oxygen and insulin status post Rmdesmir
--- NOTE | 2020-03-07 20:01 | PN ---
Date of Progress Note: 03/07/2020 Subjective: The patient was seen this morning for followup. No new complaints or problems reported by the patient, lying in bed in ICU, not in any distress. He was on BiPAP when I saw him this mayte pavon. The patient was evaluated via tele visit that included audio and video component. Nurse did not report any other complaints overnight. No nausea, vomiting, or diarrhea. Objective: Vital Signs: Reviewed. Laboratory Data: The patient's blood work this morning: Creatinine 0.83. His ferritin level 1424. AST 139, ALT 123, alkaline phosphatase 92, CRP 85. Impression: 1.COVID-19 pneumonia. 2.Hypertension. 3.Abnormal liver function tests. Plan: We will continue current medication. The patient is on steroid, antibiotic as of yesterday. He is on remdesivir and we will continue to follow with Dr. Dinero. We will continue Eliquis and w e will repeat blood work tomorrow morning and a chest x-ray. ARIAN/MODL Voice ID: [id number] Report ID: [id number]
[2020-03-07] MEDS: MELATONIN 3 MG TABLET PO SCH (21:22)
[2020-03-08 05:32] LABS: Absolute Lymphocytes (CBC) 4.3 K/uL (0.7-4.9); Basophils % 0.3 % (0-1.3); Hematocrit 39.3 % (39.6-49.0); Lymphocytes % 29.7 % (15.3-44.8); MPV 9.4 fL (7.6-11.3)
[2020-03-08 05:58] LABS: ALT/SGPT 119 U/L (12-78); AST/SGOT 113 U/L (15-37); Albumin 2.2 g/dL (3.4-5.0); Alkaline Phosphatase 91 U/L (45-117); BUN Blood Urea Nitrogen 28 mg/dL (7-18); Bicarbonate 28 mmol/L (21-32); Bilirubin Direct 0.1 mg/dL (0-0.2); Bilirubin Total 0.5 mg/dL (0.2-1.0); Ferritin 1304.3 ng/mL (26-388); Glucose Level 172 mg/dL (74-106); Potassium 4.1 mmol/L (3.5-5.1); Protein, Total 6.5 g/dL (6.4-8.2); Sodium Level 143 mmol/L (136-145)
--- NOTE | 2020-03-08 07:19 | RAD REPORT ---
EXAM DESCRIPTION: Payal Single View03/08/2020 6:20 am CLINICAL HISTORY: Chest pain COMPARISON: March 05 FINDINGS: Moderate to marked bilateral pulmonary opacities without significant change. Heart is mild ly enlarged IMPRESSION: No significant change in a bilateral pneumonia
[2020-03-08] MEDS: INSULIN -REGULAR HUMAN 50 UNIT/0.5 ML ML SQ SCH ×4 (07:30→20:37)
[2020-03-08] MEDS: SITAGLIPTIN PHOS 100 MG TAB PO SCH (09:14)
[2020-03-08] MEDS: ROSUVASTATIN 10 MG TAB PO SCH (09:14)
[2020-03-08] MEDS: VITAMIN D 1000 UNIT TAB PO SCH (09:16)
[2020-03-08] MEDS: NEBIVOLOL HCL 5 MG TAB PO SCH (09:16)
[2020-03-08] MEDS: METHYLPREDNISOLONE 125 MG INJ IV SCH ×3 (09:17→20:37)
[2020-03-08] MEDS: INSULIN GLARGINE 100 UNITS/ML SQ SCH (09:17)
[2020-03-08] MEDS: FAMOTIDINE 20 MG TAB PO SCH ×2 (09:17→20:37)
[2020-03-08] MEDS: SPIRONOLACTONE 25 MG TABLET PO SCH (09:17)
[2020-03-08] MEDS: THIAMINE HCL 100 MG TABLET PO SCH (09:17)
[2020-03-08] MEDS: Remdesivir 100 MG in NA CHLORIDE 0.9% 250 ML IV SCH (09:18)
[2020-03-08] MEDS: FUROSEMIDE 20 MG/ 2ML VIAL IV SCH (09:18)
[2020-03-08] MEDS: APIXABAN 5 MG TABLET PO SCH ×2 (10:29→20:37)
--- NOTE | 2020-03-08 13:06 | P.PN ---
Subjective Date of Service: 03/08/20 Chief Complaint: Respiratory failure from valdez virus Subjective: Improving (Patient patient is doing better oxygen requirements declining CRP declining renal function is also improving) Physical Examination - Vital Signs Temperature: 98.0 F Blood Pressure: 125/62 Pulse: 44 Respirations: 29 Pulse Ox (%): 95 - Physical Exam General: Alert, Mild distress Assessment & Plan - Problems (Diagnosis) (1) Acute respiratory failure due to severe acute respiratory syndrome coronavirus 2 (SARS-CoV-2) infection Current Visit: Yes Status: Acute Plan: Patient is clinically improving blood sugars less than 200 CRP is now less than 50 white count mildly elevated will try nasal cannula tomorrow Discharge Plan: Home Plan to discharge in: 48 Hours
[2020-03-08] MEDS: GUAIFENESIN/CODEINE 5ML UCUP PO PRN ×2 (15:16→20:37)
--- NOTE | 2020-03-08 20:08 | PN ---
Date of Progress Note: 03/08/2020 Subjective: The patient was seen this morning for followup. He was lying in bed in ICU and he was evaluated via telehealth, which included audio and video component. As per my discussion with the nursing staff, the patient had uneventful night. He remained on BiPAP all night. Yesterday during day time, he was on high-flow oxygen and BiPAP off and on, but throughout the night he stayed on BiPAP with 45% FiO2, maintaining adequate oxygenation, and hemodynamically stable. This morning when I evaluated him via telehealth, he denied any complaints, vital signs were stable. He did not appear to be in any kind of respiratory distress. He ate about 75% of his meal yesterday as reported by nursing staff. No vomiting, no diarrhea. Objective: Vital signs: Reviewed. Impression: 1. COVID-19 infection. 2. COVID-19 pneumonia. 3. Hypertension. Laboratory Data: Today white count 13.3. Sodium 143, potassium 4.1, chloride 109, bicarb 28, BUN 28, creatinine 0.80, glucose 172, AST 113, ALT 119. His CRP 43, which is better today than yesterday. Chest x-ray shows bilateral pulmonary opacities, remains unchanged from previous x-ray. Plan: We will go ahead and continue current steroid oxygen. Cough medication was ordered per the patient's request and we will continue Eliquis and other current medical management. The patient was advised to try to get out of the bed to sit in the chair if possible and spend some time now out of bed instead of lying in bed all the time and we will continue to follow up with Dr. Dinero. I will see him tomorrow for followup. ARIAN/MODL Voice ID: [id number] Report ID: [id number] ROSELYN
[2020-03-08] MEDS: MELATONIN 3 MG TABLET PO SCH (20:37)
[2020-03-09 05:25] LABS: ALT/SGPT 95 U/L (12-78); AST/SGOT 81 U/L (15-37); Albumin 2.2 g/dL (3.4-5.0); Alkaline Phosphatase 93 U/L (45-117); Bilirubin Direct 0.2 mg/dL (0-0.2); Bilirubin Total 0.6 mg/dL (0.2-1.0); Ferritin 1214.9 ng/mL (26-388); Protein, Total 6.4 g/dL (6.4-8.2)
--- NOTE | 2020-03-09 07:23 | RAD REPORT ---
EXAM DESCRIPTION: Payal Single View03/09/2020 6:38 am CLINICAL HISTORY: Chest pain COMPARISON: March 08 FINDINGS: Bilateral pulmonary opacities have mildly improved. The opacities are moderate Heart remains enlarged IMPRESSION: Mild improvement in bilateral pneumonia.
[2020-03-09] MEDS: INSULIN -REGULAR HUMAN 50 UNIT/0.5 ML ML SQ SCH ×4 (07:30→20:23)
[2020-03-09] MEDS: FAMOTIDINE 20 MG TAB PO SCH ×2 (07:38→20:22)
[2020-03-09] MEDS: THIAMINE HCL 100 MG TABLET PO SCH (07:38)
[2020-03-09] MEDS: NEBIVOLOL HCL 5 MG TAB PO SCH (07:38)
[2020-03-09] MEDS: SITAGLIPTIN PHOS 100 MG TAB PO SCH (07:38)
[2020-03-09] MEDS: VITAMIN D 1000 UNIT TAB PO SCH (07:38)
[2020-03-09] MEDS: APIXABAN 5 MG TABLET PO SCH ×2 (07:39→20:22)
[2020-03-09] MEDS: SPIRONOLACTONE 25 MG TABLET PO SCH (07:39)
[2020-03-09] MEDS: ROSUVASTATIN 10 MG TAB PO SCH (07:39)
[2020-03-09] MEDS: INSULIN GLARGINE 100 UNITS/ML SQ SCH ×2 (07:40→20:23)
[2020-03-09] MEDS: METHYLPREDNISOLONE 125 MG INJ IV SCH ×3 (07:41→20:22)
[2020-03-09] MEDS: FUROSEMIDE 20 MG/ 2ML VIAL IV SCH (07:41)
[2020-03-09] MEDS: Remdesivir 100 MG in NA CHLORIDE 0.9% 250 ML IV SCH (08:00)
[2020-03-09] MEDS: GUAIFENESIN/CODEINE 5ML UCUP PO PRN ×2 (08:48→20:22)
[2020-03-09 09:33] LABS: BUN Blood Urea Nitrogen 33 mg/dL (7-18); Bicarbonate 28 mmol/L (21-32); Glucose Level 192 mg/dL (74-106); Potassium 4.5 mmol/L (3.5-5.1); Sodium Level 142 mmol/L (136-145)
--- NOTE | 2020-03-09 11:21 | P.PN ---
Subjective Date of Service: 03/09/20 Chief Complaint: Respiratory failure from valdez virus Condition stable still tachypneic requiring high concentrations of oxygen Review of Systems General: Weakness Respiratory: Shortness of Breath Physical Examination - Vital Signs Temperature: 97.6 F Blood Pressure: 116/65 Pulse: 59 Respirations: 13 Pulse Ox (%): 85 - Physical Exam General: Moderate distress Assessment & Plan - Problems (Diagnosis) (1) Acute respiratory failure due to severe acute respiratory syndrome coronavirus 2 (SARS-CoV-2) infection Current Visit: Yes Status: Acute Plan: Respiratory failure from valdez virus continue with present therapy increase insulin CRP is pending vital signs stable continue to wean down on oxygen in courage prone position ventilation
--- NOTE | 2020-03-09 18:38 | PN ---
Date of Progress Note: 03/09/2020 Subjective: The patient was seen this afternoon for followup and he was evaluated by TeleVisit, which has audio and video component. The patient denies any complaints today. He has remained on BiPAP and when I evaluated him, he was on high-flow nasal cannula oxygen, so he can communicate with me better. After this visit, he will go back on BiPAP and he uses about 45% oxygen on BiPAP. He is maintaining adequate oxygenation with that. Hemodynamically, he is stable. He has a fair appetite, does not like hospital food, but family will try to bring food from outside, so hopefully he can have better food intake. We also talked about drinking 3 of cans of Ensure on a daily basis. He did spend some time outside the bed sitting in the chair today. He had a bowel movement. No nausea. No vomiting. Denies any other specific complaints today. Laboratory Data: Sodium 142, potassium 4.5, chloride 108, bicarb 28, BUN 33, creatinine 0.74, glucose 192. Chest x-ray shows improvement. Impression: 1. COVID-19 infection. 2. COVID-19 pneumonia. 3. Hypertension. 4. Hyperlipidemia. Plan: We will go ahead and continue current steroid, oxygen, and Eliquis therapy. Continue other current supportive care and the patient was encouraged to move his legs frequently as explained to him today and also was advised to try to spend some time in chair. All these details were discussed with the patient. We will repeat blood work tomorrow. We will repeat chest x-ray tomorrow and evaluate him tomorrow. Details were discussed with the patient's granddaughter, who will notify family regarding the patient's progress. ARIAN/MODL Voice ID: [id number] Report ID: [id number] ROSELYN
[2020-03-09] MEDS: MELATONIN 3 MG TABLET PO SCH (20:22)
[2020-03-10 05:06] LABS: Absolute Lymphocytes (CBC) 2.8 K/uL (0.7-4.9); Basophils % 0.2 % (0-1.3); Hematocrit 39.4 % (39.6-49.0); Lymphocytes % 24.2 % (15.3-44.8); MPV 9.9 fL (7.6-11.3)
[2020-03-10 05:26] LABS: ALT/SGPT 73 U/L (12-78); AST/SGOT 49 U/L (15-37); Albumin 2.1 g/dL (3.4-5.0); Alkaline Phosphatase 88 U/L (45-117); Bilirubin Direct 0.2 mg/dL (0-0.2); Bilirubin Total 0.6 mg/dL (0.2-1.0); Ferritin 943.3 ng/mL (26-388)
[2020-03-10 06:02] LABS: BUN Blood Urea Nitrogen 31 mg/dL (7-18); Bicarbonate 28 mmol/L (21-32); Glucose Level 188 mg/dL (74-106); Magnesium 2.6 mg/dL (1.8-2.4); Sodium Level 140 mmol/L (136-145)
[2020-03-10] MEDS: INSULIN -REGULAR HUMAN 50 UNIT/0.5 ML ML SQ SCH ×4 (07:30→21:21)
[2020-03-10] MEDS: METHYLPREDNISOLONE 125 MG INJ IV SCH ×3 (09:00→21:19)
[2020-03-10] MEDS: INSULIN GLARGINE 100 UNITS/ML SQ SCH ×2 (09:00→21:21)
--- NOTE | 2020-03-10 10:04 | RAD REPORT ---
EXAM DESCRIPTION: Payal Single View03/10/2020 9:51 am CLINICAL HISTORY: Chest pain COMPARISON: March 09 FINDINGS: No significant change in the moderate bilateral pulmonary opacities. Heart is mildly enlar ged IMPRESSION: No significant change in the moderate bilateral pneumonia
[2020-03-10] MEDS: Remdesivir 100 MG in NA CHLORIDE 0.9% 250 ML IV SCH (10:44)
[2020-03-10] MEDS: APIXABAN 5 MG TABLET PO SCH ×2 (10:45→21:19)
[2020-03-10] MEDS: THIAMINE HCL 100 MG TABLET PO SCH (10:46)
[2020-03-10] MEDS: FUROSEMIDE 20 MG/ 2ML VIAL IV SCH (10:46)
[2020-03-10] MEDS: ROSUVASTATIN 10 MG TAB PO SCH (10:47)
[2020-03-10] MEDS: VITAMIN D 1000 UNIT TAB PO SCH (10:47)
[2020-03-10] MEDS: SITAGLIPTIN PHOS 100 MG TAB PO SCH (10:47)
[2020-03-10] MEDS: NEBIVOLOL HCL 5 MG TAB PO SCH (10:47)
[2020-03-10] MEDS: FAMOTIDINE 20 MG TAB PO SCH ×2 (10:48→21:19)
[2020-03-10] MEDS: ASPIRIN EC 81 MG TAB PO SCH (10:49)
--- NOTE | 2020-03-10 11:25 | PN ---
Date of Progress Note: 03/10/2020 Subjective: The patient was seen this morning for followup. No new complaints or problems reported by nursing staff. Patient was evaluated with TeleVisit that included audio and video component. The patient denies any new complaints. He has been on high-flow oxygen yesterday evening and he maintains adequate oxygenation except when he talks. Here his oxygen saturation drops down to in high 80s, but then he recovers quickly. His appetite is fair and he is drink Ensure as recommended. No constipation. No nausea. No vomiting. Vital signs reviewed. When I evaluated him, he was not in any respiratory distress at all. Laboratory Data: White count 11.8, hemoglobin 13.3, platelets 299. Sodium 140, potassium 5, chloride 106, bicarb 28, BUN 31, creatinine 0.77, glucose 188, magnesium 2.6. His CRP pending. AST 49, ALT 73, alkaline phosphatase 88, albumin 2.1. Impression: 1. COVID-19 infection. 2. COVID-19 pneumonia. 3. Malnutrition, severe. 4. Hypertension. 5. Anemia, unspecified. Plan: The patient's potassium is at 5, which is upper level of normal range and he is on spironolactone. I will discontinue that as his potassium steadily has gone up during this hospital stay and I am afraid that if we continue his spironolactone he will now start to have hyperkalemia problem which will require some intervention. So as of today, I have discontinued his spironolactone. He remains on furosemide, which we will continue that. Continue steroid. Continue Eliquis and oxygen support and other current supportive care per order. The patient was encouraged to eat his meals as well as drink his 3 cans of Ensure a day to help improve his nutritional status and he was encouraged to spend some time outside the bed sitting in the chair around the meal time as suggested. We will follow up on chest x-ray, which was ordered to be done this morning. ARIAN/MODL Voice ID: [id number] Report ID: [id number] ROSELYN
--- NOTE | 2020-03-10 11:34 | P.PN ---
Subjective Date of Service: 03/10/20 Chief Complaint: Respiratory failure from valdez virus Improving shortness of breath is better still requiring high concentrations of oxygen the tachypneic at baseline Physical Examination - Vital Signs Temperature: 97.8 F Blood Pressure: 112/57 Pulse: 59 Respirations: 32 Pulse Ox (%): 84 - Physical Exam General: Alert, Mild distress Respiratory: Clear to auscultation bilaterally, Diminished Assessment & Plan - Problems (Diagnosis) (1) Acute respiratory failure due to severe acute respiratory syndrome coronavirus 2 (SARS-CoV-2) infection Current Visit: Yes Status: Acute Plan: Respiratory failure continue to titrate oxygen levels down Solu-Medrol dose reduced CRP declining white count is also declining blood sugars elevated diuretics discontinued chest x-ray still shows significant bilateral interstitial changes
[2020-03-10] MEDS: GUAIFENESIN/CODEINE 5ML UCUP PO PRN (11:39)
[2020-03-10] MEDS: MELATONIN 3 MG TABLET PO SCH (21:19)
[2020-03-11] MEDS: INSULIN -REGULAR HUMAN 50 UNIT/0.5 ML ML SQ SCH ×4 (07:30→21:38)
[2020-03-11] MEDS: INSULIN GLARGINE 100 UNITS/ML SQ SCH ×2 (09:00→21:37)
[2020-03-11] MEDS: METHYLPREDNISOLONE 125 MG INJ IV SCH ×3 (09:22→21:39)
[2020-03-11] MEDS: VITAMIN D 1000 UNIT TAB PO SCH (09:23)
[2020-03-11] MEDS: THIAMINE HCL 100 MG TABLET PO SCH (09:23)
[2020-03-11] MEDS: FAMOTIDINE 20 MG TAB PO SCH ×2 (09:23→21:43)
[2020-03-11] MEDS: ROSUVASTATIN 10 MG TAB PO SCH (09:23)
[2020-03-11] MEDS: APIXABAN 5 MG TABLET PO SCH ×2 (09:23→21:43)
[2020-03-11] MEDS: SITAGLIPTIN PHOS 100 MG TAB PO SCH (09:24)
[2020-03-11] MEDS: ASPIRIN EC 81 MG TAB PO SCH (09:24)
[2020-03-11] MEDS: NEBIVOLOL HCL 5 MG TAB PO SCH (09:24)
[2020-03-11] MEDS: GUAIFENESIN/CODEINE 5ML UCUP PO PRN ×2 (09:25→21:38)
--- NOTE | 2020-03-11 16:29 | PN ---
Date of Progress Note: 03/11/2020 Subjective: The patient was seen this morning for followup. He was evaluated via tele visit that in cluded audio and video component. As per my discussion with ICU nurse, the patient had uneventful ni ght. He was on high-flow oxygen and intermittently has used BiPAP. This morning when I evaluated, elton morales was on high-flow oxygen. He has a fair appetite at least eating 50% to 70% of his meal and drinkin g 3 cans of Ensure diet and he does spend time in the chair during daytime as recommended. Denies an y constipation problem. When I evaluated him, he was awake, alert, not in any distress. Vital signs reviewed. Labs reviewed. His ferritin level today 730 and CRP 18.3. Fingerstick blood sugar readi ngs reviewed. Impression: 1.COVID-19 infection. 2.COVID-19 pneumonia. 3.Diabetes mellitus, steroid induced. 4.Hypertension. Plan: We will continue current insulin. Continue steroids. Continue oxygen, other supportive care, and we will continue aspirin and Eliquis per order. The patient's condition overall is improving no w and we expect him to go home sometime this coming week depending on his conditions. Details and pl an of treatment discussed with the patient and patient was encouraged to continue to eat his meals an d drink nutritional supplement Ensure as suggested. ARIAN/MODL Voice ID: [id number] Report ID: [id number]
[2020-03-11] MEDS: MELATONIN 3 MG TABLET PO SCH ×2 (21:00→21:38)
[2020-03-12 05:14] LABS: Absolute Lymphocytes (CBC) 3.5 K/uL (0.7-4.9); Basophils % 0.4 % (0-1.3); Lymphocytes % 26.8 % (15.3-44.8); MPV 9.9 fL (7.6-11.3); RBC Red Blood Cell Count 5.01 M/uL (4.33-5.43)
[2020-03-12 05:28] LABS: BUN Blood Urea Nitrogen 33 mg/dL (7-18); Bicarbonate 28 mmol/L (21-32); Glucose Level 152 mg/dL (74-106); Magnesium 2.6 mg/dL (1.8-2.4); Potassium 4.6 mmol/L (3.5-5.1); Sodium Level 143 mmol/L (136-145)
[2020-03-12 06:16] VITALS: BMI 32.8
[2020-03-12] MEDS: INSULIN -REGULAR HUMAN 50 UNIT/0.5 ML ML SQ SCH ×4 (07:30→22:01)
--- NOTE | 2020-03-12 07:44 | RAD REPORT ---
EXAM DESCRIPTION: RADChest Single View03/12/2020 5:18 am CLINICAL HISTORY: Chest pain COMPARISON: March 09 FINDINGS: A small to moderate left pneumothorax has developed. Development of pneumomediastinum and bilateral subcutaneous emphysema extending into the neck No significant change in the bilateral pneumonia. IMPRESSION: Small to moderate left pneumothorax. Pneumomediastinum and subcutaneous emphysema Patient's nurse Mulugeta was notified
[2020-03-12] MEDS: FAMOTIDINE 20 MG TAB PO SCH ×2 (08:21→22:01)
[2020-03-12] MEDS: METHYLPREDNISOLONE 40 MG INJ IV SCH ×2 (08:21→22:01)
[2020-03-12] MEDS: VITAMIN D 1000 UNIT TAB PO SCH (08:22)
[2020-03-12] MEDS: NEBIVOLOL HCL 5 MG TAB PO SCH (08:22)
[2020-03-12] MEDS: THIAMINE HCL 100 MG TABLET PO SCH (08:22)
[2020-03-12] MEDS: ASPIRIN EC 81 MG TAB PO SCH (08:22)
[2020-03-12] MEDS: ROSUVASTATIN 10 MG TAB PO SCH (08:22)
[2020-03-12] MEDS: APIXABAN 5 MG TABLET PO SCH (08:23)
[2020-03-12] MEDS: SITAGLIPTIN PHOS 100 MG TAB PO SCH (08:24)
[2020-03-12] MEDS: INSULIN GLARGINE 100 UNITS/ML SQ SCH ×2 (09:40→22:02)
--- NOTE | 2020-03-12 12:01 | P.PN ---
Subjective Date of Service: 03/12/20 Chief Complaint: Respiratory failure from valdez virus pneumothorax Condition stable feeling better over he did develop a small 10% pneumothorax on the left side with subcutaneous emphysema compared with the x-ray done in the morning and at 10:00 a.m. as been no change in the size of his pneumothorax continue with high-flow oxygen Review of Systems General: Weakness Respiratory: Shortness of Breath Physical Examination - Vital Signs Temperature: 96.8 F Blood Pressure: 128/66 Pulse: 52 Respirations: 22 Pulse Ox (%): 100 Assessment & Plan - Problems (Diagnosis) (1) Acute respiratory failure due to severe acute respiratory syndrome coronavirus 2 (SARS-CoV-2) infection Current Visit: Yes Status: Acute Plan: Respiratory failure from valdez virus he has a 10% pneumothorax on the left side with mild subcutaneous emphysema continue to monitor the pneumothorax progressive will consider chest tube ovoid BiPAP labs reviewed CRP is less than 20 vital signs are otherwise stable
--- NOTE | 2020-03-12 12:16 | RAD REPORT ---
EXAM DESCRIPTION: RADChest Single View03/12/2020 11:07 am CLINICAL HISTORY: Pneumothorax COMPARISON: March 12, 2020 FINDINGS: No significant change in a small to moderate left pneumothorax, subcutaneous emphysema, pn eumomediastinum and bilateral pulmonary opacities since the prior chest x-ray
[2020-03-12] MEDS ORDERED: ENSURE HIGH PROTEIN 237 ML CAN PO PRN (16:20)
--- NOTE | 2020-03-12 17:00 | RAD REPORT ---
EXAM DESCRIPTION: RAD - Chest Single View - 03/12/2020 4:37 pm CLINICAL HISTORY: Follow for pneumothorax Chest pain. COMPARISON: Chest Single View dated 03/12/2020; Chest Single View dated 03/12/2020; Chest Single Vie w dated 03/10/2020; Chest Single View dated 03/09/2020 FINDINGS: Portable technique limits examination quality. Moderate subcutaneous emphysema is again seen. Small left-sided pneumothorax remains stable. Pneumome diastinum also appears unchanged. Moderate bilateral pulmonary opacities stable. The heart is mildly enlarged in size. IMPRESSION: Stable chest since yesterday's examination.
[2020-03-12] MEDS: MELATONIN 3 MG TABLET PO SCH (21:00)
--- NOTE | 2020-03-13 06:52 | PN ---
Date of Progress Note: 03/12/2020 Subjective: The patient was seen for followup this morning. He was lying in bed in ICU and he was e valuated via TeleVisit that included audio and video component. When I saw him, he had no complaints , no problems reported. Vital signs were stable. This morning chest x-ray was reported as small pne umothorax on the left side. Upon further questioning, the patient reports that during nighttime he h ad some discomfort on the left side of the chest, but he seems to be doing fine when the team was sen t to him. No shortness of breath reported. His labs reviewed. His white count is 12.9, hemoglobin 14.7, platelets 323. Sodium 143, potassium 4.6, chloride 108, bi carb 28, BUN 33, creatinine 0.65, glucose level 152, magnesium 2.6. Chest x-ray results reviewed marianne wing left-sided small pneumothorax with pneumomediastinum and subcutaneous emphysema. Impression: 1.Spontaneous pneumothorax, left side. 2.Subcutaneous emphysema. 3.Pneumomediastinum. 4.COVID-19 infection. 5.COVID-19 pneumonia. 6.Acute respiratory failure with hypoxia. Plan: The patient is clinically stable, hemodynamically stable. Chest x-ray results were discussed with Dr. Dinero right away and considering patient is hemodynamically stable and it is a small pneu mothorax at this point. There is a good possibility we might be able to manage him conservatively un less he becomes unstable or pneumothorax gets larger. We will continue other current medications and current management. The patient was on nasal cannula oxygen when I evaluated him. Repeat chest x-r ay during the course of the evaluation shows that pneumothorax has remained stable and we will continue to follow with Dr. Serene jorgensen. ARIAN/MODL Voice ID: [id number] Report ID: [id number]
[2020-03-13] MEDS: INSULIN -REGULAR HUMAN 50 UNIT/0.5 ML ML SQ SCH ×4 (07:30→21:00)
[2020-03-13] MEDS: SITAGLIPTIN PHOS 100 MG TAB PO SCH (08:28)
[2020-03-13] MEDS: THIAMINE HCL 100 MG TABLET PO SCH (08:28)
[2020-03-13] MEDS: VITAMIN D 1000 UNIT TAB PO SCH (08:28)
[2020-03-13] MEDS: ASPIRIN EC 81 MG TAB PO SCH (08:28)
[2020-03-13] MEDS: FAMOTIDINE 20 MG TAB PO SCH ×2 (08:28→21:31)
[2020-03-13] MEDS: NEBIVOLOL HCL 5 MG TAB PO SCH (08:29)
[2020-03-13] MEDS: ROSUVASTATIN 10 MG TAB PO SCH (08:29)
[2020-03-13] MEDS: predniSONE 20 MG TAB PO SCH ×2 (08:29→21:29)
[2020-03-13] MEDS: INSULIN GLARGINE 100 UNITS/ML SQ SCH ×2 (08:30→21:30)
--- NOTE | 2020-03-13 08:42 | RAD REPORT ---
EXAM DESCRIPTION: RAD - Chest Single View - 03/13/2020 8:30 am CLINICAL HISTORY: pneumothorax COMPARISON: March 12 multiple studies, March 10 TECHNIQUE: AP portable chest image was obtained 03/13/2020 8:30 am . FINDINGS: Left-sided pneumothorax has improved with little or no pneumothorax identifiable. No right -sided pneumothorax seen. Anterior pneumothorax can be occult on a portable study. Extensive bilateral airspace opacification present showing a slight improvement from the prior examin ation. Heart and vasculature are normal. Pneumomediastinum and subcutaneous emphysema are stable. IMPRESSION: Left-sided pneumothorax is no longer identifiable. An anterior pneumothorax can be occul t on portable imaging. Slight improvement in the bilateral airspace opacification from prior day imaging. Pneumomediastinum and subcutaneous emphysema are stable.
[2020-03-13] MEDS: APIXABAN 5 MG TABLET PO SCH ×2 (09:26→21:29)
--- NOTE | 2020-03-13 12:28 | P.PN ---
Subjective Date of Service: 03/13/20 Chief Complaint: Respiratory failure from valdez virus pneumothorax he is feeling a little better pneumothorax is resolved still has significant bilateral infiltrate Review of Systems is unable to be obtained Physical Examination - Vital Signs Temperature: 97.6 F Blood Pressure: 116/60 Pulse: 52 Respirations: 18 Pulse Ox (%): 91 - Physical Exam General: Alert, Mild distress Respiratory: Crackles/rales Assessment & Plan - Problems (Diagnosis) (1) Acute respiratory failure due to severe acute respiratory syndrome coronavirus 2 (SARS-CoV-2) infection Current Visit: Yes Status: Acute Plan: patient's condition no change she still has significant bilateral changes on the x-ray pneumothorax is resolved blood sugar is still elevated C-reactive protein is less than 10 continue to titrate O2
[2020-03-13] MEDS: MELATONIN 3 MG TABLET PO SCH (21:31)
[2020-03-14 04:56] LABS: Absolute Lymphocytes (CBC) 4.9 K/uL (0.7-4.9); Basophils % 0.6 % (0-1.3); Hematocrit 42.4 % (39.6-49.0); Lymphocytes % 28.3 % (15.3-44.8); MPV 9.1 fL (7.6-11.3); RBC Red Blood Cell Count 4.82 M/uL (4.33-5.43)
[2020-03-14 05:40] LABS: BUN Blood Urea Nitrogen 29 mg/dL (7-18); Bicarbonate 30 mmol/L (21-32); C-Reactive Protein 8.61 mg/L (<3.00); Ferritin 705.6 ng/mL (26-388); Glucose Level 107 mg/dL (74-106); Magnesium 2.3 mg/dL (1.8-2.4); Potassium 5.1 mmol/L (3.5-5.1); Sodium Level 140 mmol/L (136-145)
--- NOTE | 2020-03-14 06:50 | PN ---
Date of Progress Note: 03/13/2020 Subjective: Patient was seen this morning for followup. No new complaints or problems reported by debra kerry, lying in bed in ICU, and he was evaluated via tele visit that included audio and video compon ent. Overall, he feels better. Denies any chest pain. Denies any shortness of breath. He was not in any respiratory distress when I evaluated him. Objective: Vital Signs: Reviewed. Laboratory Data: Chest x-ray done today shows improvement in pneumothorax and improvement in bilater al pulmonary opacities. His CRP 7.47. Impression: 1.Spontaneous pneumothorax, left side, improving. 2.Pneumomediastinum. 3.Subcutaneous emphysema. 4.COVID-19 infection. 5.COVID-19 pneumonia. Plan: We will go ahead and continue current medication patient is on steroids. We will continue prabha t. Continue oxygen and other supportive care. Patient's pneumothorax is improving on its own withou t any intervention, and he is on oxygen per nasal cannula. I did discuss details with Dr. Dinero, and he had his Eliquis on hold, but he will restart it as of today. We will repeat chest x-ray and b lood work tomorrow. ARIAN/MODL Voice ID: [id number] Report ID: [id number]
[2020-03-14] MEDS: INSULIN -REGULAR HUMAN 50 UNIT/0.5 ML ML SQ SCH ×4 (07:30→20:54)
[2020-03-14] MEDS: INSULIN GLARGINE 100 UNITS/ML SQ SCH (07:41)
[2020-03-14] MEDS: APIXABAN 5 MG TABLET PO SCH ×2 (08:11→20:54)
[2020-03-14] MEDS: FAMOTIDINE 20 MG TAB PO SCH ×2 (08:11→20:54)
[2020-03-14] MEDS: VITAMIN D 1000 UNIT TAB PO SCH (08:11)
[2020-03-14] MEDS: LOSARTAN POTASSIUM 50 MG TABLET PO SCH (08:11)
[2020-03-14] MEDS: THIAMINE HCL 100 MG TABLET PO SCH (08:11)
[2020-03-14] MEDS: SITAGLIPTIN PHOS 100 MG TAB PO SCH (08:12)
[2020-03-14] MEDS: predniSONE 20 MG TAB PO SCH ×2 (08:12→20:54)
[2020-03-14] MEDS: ASPIRIN EC 81 MG TAB PO SCH (08:12)
[2020-03-14] MEDS: ROSUVASTATIN 10 MG TAB PO SCH (08:12)
--- NOTE | 2020-03-14 08:38 | RAD REPORT ---
EXAM DESCRIPTION: RAD - Chest Single View - 03/14/2020 5:28 am CLINICAL HISTORY: pneumothorax Chest pain. COMPARISON: Chest Single View dated 03/13/2020; Chest Single View dated 03/12/2020; Chest Single Vie w dated 03/12/2020; Chest Single View dated 03/12/2020 FINDINGS: Portable technique limits examination quality. Extensive bilateral pulmonary opacities are again seen, without significant change. The previously no tory small left-sided pneumothorax is not seen on this examination. Subcutaneous emphysema and mild pn eumomediastinum appears stable to mildly improved. Heart size is upper limit normal.
--- NOTE | 2020-03-14 20:32 | PN ---
Date of Progress Note: 03/14/2020 Chief Complaint: The patient was seen for followup this morning. He was evaluated via tele visit th at included audio and video component. The patient was lying in bed in ICU on nasal cannula oxygen 3 .5 L/minute, maintaining adequate oxygenation. No chest pain. No shortness of breath. No nausea or vomiting. His appetite is good. Objective: Vital signs are stable. No new complaints or problems reported by nursing staff either. Laboratory Data: White count 17.4, hemoglobin 14, platelets 405. Sodium 140, potassium 5.1, chlorid e 106, bicarb 30, BUN 29, creatinine 0.64, glucose 107, ferritin 705, and CRP 8.61. Impression: 1.Spontaneous pneumothorax, left side, with subcutaneous emphysema. 2.Pneumomediastinum. 3.COVID-19 infection. 4.COVID-19 pneumonia. 5.Hypertension. Plan: We will go ahead and continue current medication. Continue current supportive care. The eligio ent is medically stable, doing much better than before. Details were discussed with Dr. Dinero and he will make arrangements for the patient to go home with home oxygen. Possible discharge to go [facility] in the next 1 or 2 days and details were discussed with the patient. ARIAN/MODL Voice ID: [id number] Report ID: [id number]
[2020-03-14] MEDS: MELATONIN 3 MG TABLET PO SCH (20:54)
[2020-03-15] MEDS: INSULIN -REGULAR HUMAN 50 UNIT/0.5 ML ML SQ SCH ×3 (07:30→15:43)
[2020-03-15] MEDS: ROSUVASTATIN 10 MG TAB PO SCH (08:17)
[2020-03-15] MEDS: APIXABAN 5 MG TABLET PO SCH (08:18)
[2020-03-15] MEDS: LOSARTAN POTASSIUM 50 MG TABLET PO SCH (08:18)
[2020-03-15] MEDS: SITAGLIPTIN PHOS 100 MG TAB PO SCH (08:18)
[2020-03-15] MEDS: THIAMINE HCL 100 MG TABLET PO SCH (08:18)
[2020-03-15] MEDS: VITAMIN D 1000 UNIT TAB PO SCH (08:18)
[2020-03-15] MEDS: ASPIRIN EC 81 MG TAB PO SCH (08:18)
[2020-03-15] MEDS: predniSONE 20 MG TAB PO SCH (08:18)
[2020-03-15] MEDS: FAMOTIDINE 20 MG TAB PO SCH (08:18)
--- NOTE | 2020-03-15 08:36 | RAD REPORT ---
EXAM DESCRIPTION: RAD - Chest Single View - 03/15/2020 5:42 am CLINICAL HISTORY: pneumothorax Chest pain. COMPARISON: Chest Single View dated 03/14/2020; Chest Single View dated 03/13/2020; Chest Single Vie w dated 03/12/2020; Chest Single View dated 03/12/2020 FINDINGS: Portable technique limits examination quality. Fractional improvement in lung aeration is seen since comparative study. Pneumomediastinum and subcut aneous emphysema appears stable. The heart is upper limit normal in size.No measurable pneumothorax s een. IMPRESSION: Slight improvement in lung aeration is seen since comparative study.
[2020-03-15 10:19] VITALS: O2SAT 87
[2020-03-15 13:00] VITALS: TEMP 97.5
[2020-03-15 16:08] VITALS: BP 103/56
--- NOTE | 2020-03-19 21:40 | DS ---
Date of Discharge: 03/15/2020 Disposition: Discharged to go home. Physical Examination: The patient was evaluated via TeleVisit, which included audio and medial component. He was awake and alert. Denied any complaints. Vital signs reviewed. Laboratory Data: Upon admission on 03/05/2020, white count 11.4, hemoglobin 14.1, platelets 288. [place] st CBC from 03/14/2020, white count 17.4, hemoglobin 14, platelets 405. Hemoglobin A1c 6.7. Last CR P 9.89, done on 03/15/2020. His highest CRP level was when he came in on 03/05/2020 and it was 191. Final Diagnoses: 1.COVID-19 infection. 2.COVID-19 pneumonia. 3.Type 2 diabetes mellitus. 4.Hypertension. 5.Mixed hyperlipidemia. 6.Benign prostatic hypertrophy. 7.Gastroesophageal reflux disease. 8.Nonalcoholic fatty liver disease. Hospital Course: The patient is a 65-year-old male patient, admitted to the hospital after he came i nto the emergency room with nausea and vomiting problem. Please see dictated H and P for more inform ation. Further evaluation in the emergency room revealed the patient had COVID-19 pneumonia. He was admitted to intensive care unit. The patient was treated with oral anticoagulation therapy, which w as Eliquis 5 mg 2 times a day from the beginning. He was also given IV steroids and subsequently he also received remdesivir. Dr. Dinero from Pulmonary was consulted. The patient required oxygen contreras pport and overall his condition improved over the period of this hospitalization. He still has hypox ia on room air and required supplemental oxygen, so arrangements were made for the patient to go home with home oxygen and once all arrangements completed, the patient was discharged to go home in stabl e condition. Discharge Order And Medications: Please see copy of discharge orders for details. ARIAN/MODL Voice ID: [id number] Report ID: [id number]
== END 2020-03-15 17:55 | disposition home or self-care (01) | DRG 177 ==
LOC: ER 11:06 → ERHOLD 15:14 → 3RD-ICU 03-06 13:19 → 4TH 03-14 16:38
PROVIDERS: ADMIT Internal Medicine; ATTEND Internal Medicine
PROC: 5A09557 Assistance with Respiratory Ventilation, Greater than 96 Consecutive Hours, Continuous Positive Airway Pressure (ICD-10-PCS; 2020-03-06)
PROC: XW033E5 Introduction of Remdesivir Anti-infective into Peripheral Vein, Percutaneous Approach, New Technology Group 5 (ICD-10-PCS; principal; 2020-03-07)
DX: U07.1 COVID-19 (principal); J12.89 Other viral pneumonia; J80 Acute respiratory distress syndrome; E43 Unspecified severe protein-calorie malnutrition; J93.83 Other pneumothorax; I10 Essential (primary) hypertension; K21.9 Gastro-esophageal reflux disease without esophagitis; J98.2 Interstitial emphysema; E11.9 Type 2 diabetes mellitus without complications; D64.9 Anemia, unspecified; E78.2 Mixed hyperlipidemia; N40.0 Benign prostatic hyperplasia without lower urinary tract symptoms; K76.0 Fatty (change of) liver, not elsewhere classified; R94.5 Abnormal results of liver function studies; R73.01 Impaired fasting glucose; Z79.899 Other long term (current) drug therapy; Z68.32 Body mass index [BMI] 32.0-32.9, adult
CPT/HCPCS: 36415; 71045; 71275; 80048; 80076; 81003; 82565; 82728; 82947; 83036; 83605; 83690; 83735; 83880; 84145; 84484; 85025; 85379; 85610; 85730; 86140; 87040; 87804; 93005; 94003; 94660; 94760; 96361; 96365; 96375; 99285; J0456; J1100; J1815; J1940; J2405; J2920; J2930; J7030; J7050; J7512; Q9967